=== PATIENT | male | born 1960 | race Caucasian/White ===

== ENCOUNTER 2018-01-09 23:12 | Inpatient (IN) | payer BC ==
[~2018-01-09] VITALS: Ht 182.9 cm; Wt 134.4 kg
[~2018-01-09 23:12] MED LIST changes: -XARELTO20 MG PO
[2018-01-09] MEDS ORDERED: OXYCONTIN10 MG PO (23:51)
[2018-01-09] MEDS ORDERED: XARELTO20 MG PO (23:51)
[2018-01-10] VITALS (7 sets, daily range): BP systolic 139–172; BP diastolic 72–84
[2018-01-10 00:09] LABS: BASOPHILS # (AUTO) 0.1 (0.0-0.1); BASOPHILS % 0.8 % (0.0-1.0); EOSINOPHILS # (AUTO) 0.1 (0.0-0.4); EOSINOPHILS % 1.6 % (0.0-6.0); HEMATOCRIT 44.9 % (38.2-49.6); HEMOGLOBIN 15.2 g/dL (14.0-18.0); LYMPHOCYTES # (AUTO) 2.1 (1.0-3.2); LYMPHOCYTES % 23.6 % (18.0-39.1); MEAN CORPUSCULAR HEMOGLOBIN 28.6 pg (28-32); MEAN CORPUSCULAR HGB CONC 33.9 g/dL (31-35); MEAN CORPUSCULAR VOLUME 84.4 fL (81-99); MONOCYTES # (AUTO) 0.8 (0.2-0.8); MONOCYTES % 8.5 % (4.4-11.3); NEUTROPHILS # (AUTO) 5.4 (2.1-6.9); NEUTROPHILS % 60.9 % (38.7-80.0); PLATELET COUNT 340 x10e3/uL (140-360); RED BLOOD COUNT 5.32 x10e6/uL (4.3-5.7); RED CELL DISTRIBUTION WIDTH 14.2 % (11.7-14.4)
[2018-01-10] MEDS ORDERED: VANCOMYCIN 1GM/NS 250 ML 250 ML IV ONE (00:15)
[2018-01-10 00:17] LABS: INR 1.23; PROTHROMBIN TIME 14.6 seconds (11.9-14.5)
[2018-01-10 00:18] LABS: PARTIAL THROMBOPLASTIN TIME 36.3 seconds (23.8-35.5)
[2018-01-10 00:25] LABS: ALANINE AMINOTRANSFERASE 42 IU/L (0-55); ALBUMIN 2.8 g/dL (3.5-5.0); ALBUMIN/GLOBULIN RATIO 0.6 (0.8-2.0); ALKALINE PHOSPHATASE 169 IU/L (40-150); ANION GAP 18.2 mmol/L (8-16); BLOOD UREA NITROGEN 19 mg/dL (7-26); BUN/CREATININE RATIO 14 (6-25); CALCIUM 9.3 mg/dL (8.4-10.2); CARBON DIOXIDE 22 mmol/L (22-29); CHLORIDE 99 mmol/L (98-107); CREATINE KINASE 116 IU/L (30-200); CREATININE, SERUM 1.38 mg/dL (0.72-1.25); EST GLOMERULAR FILTRATION RATE 53 ML/MIN (60-); MAGNESIUM 2.1 MG/DL (1.3-2.1); POTASSIUM 4.2 mmol/L (3.5-5.1); SODIUM 135 mmol/L (136-145)
[2018-01-10 00:26] LABS: GLUCOSE 668 mg/dL (74-118)
[2018-01-10] MEDS: PIPER-TAZ 3.375 GM 50 ML IV SCH ×5 (00:32→23:39)
[2018-01-10] MEDS ORDERED: SODIUM CHLORIDE 0.9% 1000ML 1,000 ML IV STA (00:34)
[2018-01-10] MEDS ORDERED: INSULIN REGULAR, HUMAN 100 UNIT/1 ML 3ML VIAL IV STA (00:34)
--- NOTE | 2018-01-10 01:11 | Diagnostic Imaging Report ---
EXAM: LOWER LEG LEFT, AP and lateral INDICATION: Lower extremity cellulitis, wound posterior leg mid diaphysis COMPARISON: None FINDINGS: BONES: Prior transmetatarsal surgical amputation. Multiple subcentimeter lucent lesions seen in the mid to distal tibia JOINTS: No malalignment. Degenerative changes of the ankle and hindfoot. SOFT TISSUES: Subcutaneous emphysema in the proximal lateral calf. Multiple surgical clips medial upper calf. Phleboliths and soft tissue swelling lower calf/ankle. IMPRESSION: Multiple subcentimeter lucent lesions in the mid to distal tibial diaphysis could represent osteomyelitis or multiple myeloma. Superficial subcutaneous emphysema at the proximal lateral calf consistent with soft tissue infection. Signed by: Dr. Jennifer Childress M.D. on 01/10/2018 1:08 AM
--- NOTE | 2018-01-10 01:12 | Diagnostic Imaging Report ---
EXAM: CHEST 2 VIEWS, PA and lateral INDICATION: Lower extremity cellulitis COMPARISON: None FINDINGS: LINES/TUBES: None LUNGS: No consolidations or edema. PLEURA: No effusions or pneumothorax. HEART AND MEDIASTINUM: Normal size and contour. BONES AND SOFT TISSUES: No acute findings. Degenerative changes of the thoracic spine. IMPRESSION: No acute thoracic abnormality. Signed by: Dr. Jennifer Childress M.D. on 01/10/2018 1:09 AM
[2018-01-10] MEDS ORDERED: SODIUM CHLORIDE 0.9% 1000ML 1,000 ML IV SCH (01:23)
[2018-01-10] MEDS ORDERED: DEXTROSE 50% SYRINGE 50 ML IV PRN (01:30)
[2018-01-10 02:37] LABS: CLARITY,URINE CLEAR (CLEAR); COLOR,URINE YELLOW (YELLOW); LEUKOCYTE ESTERASE ,URINE NEGATIVE (NEGATIVE)
[2018-01-10 02:38] LABS: BILIRUBIN,URINE NEGATIVE (NEGATIVE); KETONES,URINE 1+ (NEGATIVE); NITRITE,URINE NEGATIVE (NEGATIVE); PROTEIN,URINE DIPSTICK NEGATIVE (NEGATIVE); URINE UROBILINOGEN 0.2 mg/dL (0.2 - 1)
[2018-01-10 02:40] LABS: EPITHELIAL CELLS,URINE FEW /LPF; RBC,URINE 0-5 /HPF (0-5); WBC,URINE (MAN) 0-5 /HPF (0-5)
[2018-01-10] MEDS: HYDROMORPHONE 1MG/1ML INJ IV PRN ×4 (03:15→21:25)
[2018-01-10] MEDS: ONDANSETRON HCL INJ 2 MG/ML VIAL IV PRN ×3 (03:15→21:25)
[2018-01-10] MEDS: RIVAROXABAN 20 MG TABLET PO SCH (08:21)
[2018-01-10] MEDS: INSULIN REGULAR, HUMAN 100 UNIT/1 ML 3ML VIAL SQ SCH ×4 (08:21→21:00)
[2018-01-10] MEDS: VANCOMYCIN 1GM/NS 250 ML 250 ML IV SCH (10:44)
--- NOTE | 2018-01-10 16:59 | Diagnostic Imaging Report ---
BONE SURVEY COMP -19 views HISTORY: Multiple myeloma. COMPARISON: None available. FINDINGS: Bones: No acute displaced fracture. Remote fracture of the right ulnar styloid. No significant lytic lesions noted. Joints: Degenerative changes of the cervical and thoracolumbar spine. DJD of AC joint bilaterally. Right foot demonstrate moderate hallux valgus deformity. Soft tissues: IVC filter. Chest: Bibasilar subsegmental atelectasis. IMPRESSION: 1. No evidence of lytic lesions. 2. Moderate right hallux valgus deformity. Signed by: Dr. Evelia Ferrell M.D. on 01/10/2018 4:55 PM
[2018-01-10] MEDS: OXYCODONE HCL 10 MG TAB CR PO PRN (19:16)
[2018-01-11] VITALS (9 sets, daily range): BP systolic 116–173; BP diastolic 64–92
[2018-01-11] MEDS: HYDROMORPHONE 1MG/1ML INJ IV PRN ×4 (00:15→22:20)
[2018-01-11] MEDS: ONDANSETRON HCL INJ 2 MG/ML VIAL IV PRN ×3 (00:15→22:20)
--- NOTE | 2018-01-11 02:51 | Consultation ---
DATE OF CONSULTATION: January 10, 2018 REASON FOR CONSULTATION: Left TMA site infection. Thank you so much for asking me to see this patient. This is a very pleasant 57-year-old white male with a history of obesity, history of smoking, history of left TMA amputation 7 years ago, history of some DVT and some type of venous surgery on that same leg according to him. The patient comes in with a 1-week history of dehiscence of the wound. No trauma. Some drainage. No fever. No chills. The stump was erythematous and started to go up to his leg. Patient apparently took some oral antibiotic before he came here without any improvement. He came to the hospital where he is being admitted. Patient is currently laying in bed comfortably. He has no other complaints at the present time. He is up to date on vaccinations he said. REVIEW OF SYSTEMS HEENT: There is no headache, visual changes or hearing changes. GI: There is no nausea. No vomiting. No diarrhea. CARDIAC: There is no arrhythmia. NEURO: No seizure activity. SKIN: There is no rash. All other symptoms are within normal limits. MEDICATIONS: His medication list, he is currently on Xarelto, insulin, Zofran, and Zosyn. ALLERGIES: NKA. SOCIAL HISTORY: He smoked 1 pack a day. LABS: White count 8.93, hemoglobin 15.2, hematocrit 44, and his platelets are 340,000. Sodium 130, potassium 4.2, glucose 668, creatinine 1.38. He had an x-ray of the foot that showed multiple lucency in the middistal tibia. Could represent osteomyelitis or multiple myeloma. PHYSICAL EXAMINATION GENERAL: He is currently alert and oriented. Does not seem to be in acute distress. VITALS: Stable. Currently afebrile. HEENT: Does not appear icteric. NECK: Supple. No JVD. No thyromegaly. CHEST: Clear bilaterally. HEART: S1 and S2. No S3, S4 or murmur. ABDOMEN: Soft. EXTREMITIES: At the stump, there is erythema and edema. IMPRESSION 1. Cellulitis of the stump: Concerned about underlying osteomyelitis. Obtain MRI. 2. Chronic kidney disease. 3. Diabetes mellitus, not controlled. 4. Peripheral vascular disease: I would recommend vascular workup. Will add vancomycin 1 g q.24 h. Bone survey to rule out multiple myeloma. Serum protein electrophoresis. Urine protein electrophoresis. Will follow. Job#: [id number]
[2018-01-11 04:39] LABS: BASOPHILS # (AUTO) 0.1 (0.0-0.1); BASOPHILS % 0.6 % (0.0-1.0); EOSINOPHILS # (AUTO) 0.1 (0.0-0.4); EOSINOPHILS % 1.2 % (0.0-6.0); HEMATOCRIT 42.9 % (38.2-49.6); HEMOGLOBIN 14.1 g/dL (14.0-18.0); LYMPHOCYTES # (AUTO) 2.6 (1.0-3.2); LYMPHOCYTES % 24.6 % (18.0-39.1); MEAN CORPUSCULAR HEMOGLOBIN 28.4 pg (28-32); MEAN CORPUSCULAR HGB CONC 32.9 g/dL (31-35); MEAN CORPUSCULAR VOLUME 86.5 fL (81-99); MONOCYTES # (AUTO) 0.8 (0.2-0.8); MONOCYTES % 7.8 % (4.4-11.3); NEUTROPHILS # (AUTO) 6.6 (2.1-6.9); NEUTROPHILS % 62.8 % (38.7-80.0); PLATELET COUNT 294 x10e3/uL (140-360); RED BLOOD COUNT 4.96 x10e6/uL (4.3-5.7); RED CELL DISTRIBUTION WIDTH 14.3 % (11.7-14.4)
[2018-01-11 04:57] LABS: ALANINE AMINOTRANSFERASE 48 IU/L (0-55); ALBUMIN 2.5 g/dL (3.5-5.0); ALBUMIN/GLOBULIN RATIO 0.6 (0.8-2.0); ALKALINE PHOSPHATASE 104 IU/L (40-150); ANION GAP 15.9 mmol/L (8-16); BLOOD UREA NITROGEN 16 mg/dL (7-26); BUN/CREATININE RATIO 17 (6-25); CALCIUM 8.8 mg/dL (8.4-10.2); CARBON DIOXIDE 22 mmol/L (22-29); CHLORIDE 106 mmol/L (98-107); CREATININE, SERUM 0.94 mg/dL (0.72-1.25); EST GLOMERULAR FILTRATION RATE > 60 ML/MIN (60-); GLUCOSE 271 mg/dL (74-118); POTASSIUM 3.9 mmol/L (3.5-5.1); SODIUM 140 mmol/L (136-145)
[2018-01-11] MEDS: PIPER-TAZ 3.375 GM 50 ML IV SCH ×3 (06:15→17:23)
[2018-01-11] MEDS: RIVAROXABAN 20 MG TABLET PO SCH (07:56)
[2018-01-11] MEDS: INSULIN REGULAR, HUMAN 100 UNIT/1 ML 3ML VIAL SQ SCH ×4 (07:59→21:00)
[2018-01-11] MEDS: VANCOMYCIN 1GM/NS 250 ML 250 ML IV SCH (09:03)
[2018-01-11] MEDS: OXYCODONE HCL 10 MG TAB CR PO PRN (10:45)
[2018-01-12] VITALS (7 sets, daily range): BP systolic 131–151; BP diastolic 64–88
[2018-01-12] MEDS: PIPER-TAZ 3.375 GM 50 ML IV SCH ×5 (00:07→23:02)
[2018-01-12] MEDS: ONDANSETRON HCL INJ 2 MG/ML VIAL IV PRN ×3 (02:20→22:14)
[2018-01-12] MEDS: HYDROMORPHONE 1MG/1ML INJ IV PRN ×5 (02:20→22:14)
[2018-01-12] MEDS: INSULIN REGULAR, HUMAN 100 UNIT/1 ML 3ML VIAL SQ SCH ×4 (07:30→21:02)
[2018-01-12] MEDS: RIVAROXABAN 20 MG TABLET PO SCH (08:13)
[2018-01-12] MEDS: VANCOMYCIN 1GM/NS 250 ML 250 ML IV SCH (10:00)
[2018-01-12] MEDS ORDERED: GADOBENATE DIMEGLUMINE 1 ML IV ONE (11:17)
--- NOTE | 2018-01-12 11:31 | Diagnostic Imaging Report ---
PROCEDURE: A single AP view of the chest. COMPARISON: 01/10/18 INDICATIONS: PICC PLACEMENT FINDINGS: Lines/tubes: Right PICC in place with tip overlying the inferior SVC. Lungs: The lungs are well inflated. Mild central peribronchovascular thickening/cuffing . No definite focal consolation. Pleura: There is no pleural effusion or pneumothorax. Heart and mediastinum: The heart and the mediastinum are unremarkable. Bones: No acute bony abnormality. IMPRESSION: Right PICC in place with tip overlying the inferior SVC. No visible pneumothorax. Mild central peribronchovascular thickening/cuffing . Dictated by: Bolivar Gonsalves M.D. on 01/12/2018 at 11:37 Electronically approved by: Bolivar Gonsalves M.D. on 01/12/2018 at 11:37
--- NOTE | 2018-01-12 13:18 | Diagnostic Imaging Report ---
TECHNIQUE: Magnetic resonance imaging of the LEFT ANKLE was performed WITH and WITHOUT injected contrast. Post-contrast images were obtained after intravenous injection of 20 cc of MultiHance. HISTORY: Cellulitis, swelling COMPARISON: Left tibia and fibula January 10, 2018 and left foot radiographs January 08, 2016 FINDINGS: BONES: Serpentine intramedullary signal within the distal tibial metadiaphysis without adjacent edema. No acute fracture or osteonecrosis. Status post partial amputation of the foot at the level of the tarsometatarsal joints. JOINTS: Multifocal degenerative changes, most notably moderate of the tibiotalar joint. SOFT TISSUES: Mild nonspecific superficial soft tissue edema. No fluid collection. IMPRESSION: 1. No osteomyelitis. 2. No soft tissue abscess. 3. 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 Signed by: Dr. Des Baca D.O., M.M.M. on 01/12/2018 1:14 PM
[2018-01-12] MEDS: OXYCODONE HCL 10 MG TAB CR PO PRN (14:35)
[2018-01-13] VITALS: BP 138/73
[2018-01-13] MEDS: ONDANSETRON HCL INJ 2 MG/ML VIAL IV PRN ×2 (03:30→22:08)
[2018-01-13] MEDS: HYDROMORPHONE 1MG/1ML INJ IV PRN ×6 (03:30→22:08)
[2018-01-13 04:00] VITALS: BP 138/66
[2018-01-13] MEDS: PIPER-TAZ 3.375 GM 50 ML IV SCH ×3 (05:14→18:41)
--- NOTE | 2018-01-13 06:58 | Consultation ---
DATE OF CONSULTATION: January 13, 2018 The patient is a 57-year-old male with a history of diabetes, who presents with nonhealing ulcers on his left leg. He has purulent drainage from the left leg. Also, has a nonhealing wound to the left transmetatarsal amputation stump, which has not healed for many years. Patient has had purulent drainage from ulcers on the posterior aspect of his left leg. PAST MEDICAL HISTORY: As stated above. ALLERGIES: HE HAS NO ALLERGIES. PREVIOUS SURGERIES: Left transmetatarsal amputation and history of hypertension. FAMILY HISTORY: Noncontributory. SOCIAL HISTORY: The patient smokes cigarettes 1 pack per day. He does not drink alcohol. REVIEW OF SYSTEMS: He has not had any fever. PHYSICAL EXAMINATION GENERAL: The patient is awake, alert and in no distress. VITALS: Normal. HEENT: Reveals no scleral icterus. NECK: Has no masses. LUNGS: Equal breath sounds are clear bilaterally. CARDIAC: Regular rate and rhythm. No murmur. ABDOMEN: Soft without tenderness. EXTREMITIES: There is a left transmetatarsal amputation with an open area, which is clean. There is a ulcer on the posterior aspect of the leg with purulent drainage. ASSESSMENT: A 57-year-old male with nonhealing ulcer on his left transmetatarsal amputation, as well as abscess on the posterior aspect of his leg. There is also changes of venous stasis. Patient will need incision and drainage of the abscess on the leg with some debridement. This was explained to the patient, and have scheduled the patient for surgery tomorrow. Thank you for asking me to see Mr. Madrid. Job#: [id number]
[2018-01-13 07:30] VITALS: BP 130/74
[2018-01-13] MEDS: INSULIN REGULAR, HUMAN 100 UNIT/1 ML 3ML VIAL SQ SCH ×4 (08:01→21:35)
[2018-01-13] MEDS: VANCOMYCIN 1GM/NS 250 ML 250 ML IV SCH (10:24)
[2018-01-13 12:00] VITALS: BP 139/67
[2018-01-13 16:00] VITALS: BP 140/86
[2018-01-13 20:00] VITALS: BP 120/65
[2018-01-14] VITALS (7 sets, daily range): BP systolic 106–138; BP diastolic 52–85
[2018-01-14] MEDS: PIPER-TAZ 3.375 GM 50 ML IV SCH ×4 (00:20→17:14)
[2018-01-14] MEDS: HYDROMORPHONE 1MG/1ML INJ IV PRN ×7 (02:00→22:41)
[2018-01-14] MEDS: ONDANSETRON HCL INJ 2 MG/ML VIAL IV PRN (06:22)
[2018-01-14] MEDS: INSULIN REGULAR, HUMAN 100 UNIT/1 ML 3ML VIAL SQ SCH ×4 (07:30→20:37)
[2018-01-14] MEDS: VANCOMYCIN 1GM/NS 250 ML 250 ML IV SCH (10:00)
[2018-01-14] MEDS ORDERED: DEXAMETHASONE SOD PHOS INJ 4 MG/ML VIAL ONE (13:25)
[2018-01-14] MEDS ORDERED: PHENYLEPHRINE HCL 1% 10 MG/ML VIAL ONE (13:25)
[2018-01-14] MEDS ORDERED: ONDANSETRON HCL INJ 2 MG/ML VIAL ONE (13:25)
[2018-01-14] MEDS ORDERED: LIDOCAINE HCL 2% LOCAL INJ 5 ML SDV VIAL INJ ONE (13:25)
[2018-01-14] MEDS ORDERED: SEVOFLURANE INHAL SOLN 250 ML PEN BTL ONE (13:25)
[2018-01-14] MEDS ORDERED: PROPOFOL IV EMULSION 10 MG/ML 20 ML VIAL ONE (13:25)
--- NOTE | 2018-01-14 13:54 | Operative Report ---
DATE OF PROCEDURE: January 14, 2018 PREOPERATIVE DIAGNOSIS: Abscess, left leg with necrotic ulcer, left leg. POSTOPERATIVE DIAGNOSIS: Abscess, left leg with necrotic ulcer, left leg. PROCEDURES PERFORMED 1. Incision and drainage of abscess, left leg. 2. Excisional debridement, left leg ulcer. DISABILITY ADVOCATE: None. ANESTHESIA: General. INDICATIONS AND FINDINGS: Patient is a 57-year-old male who has history of venous stasis disease, presently has an ulcer on the left leg with purulent drainage. At surgery, there was an abscess cavity adjacent to the ulcer, which was drained. Approximately 10 mL of purulent fluid was drained. Sample was taken for culture and sensitivity. There was necrotic subcutaneous tissue and a large amount of undermining around the area of the ulcer, which all was excised back to healthy tissue. TECHNIQUE: After adequate general anesthesia with the patient in right side down position, the left posterolateral leg was prepped and draped in sterile fashion with Betadine solution. There was a small ulcer with purulent drainage. An incision made through this area and abscess cavity entered. About 10 mL of purulent fluid was drained. Sample taken for culture and sensitivity. There was another ulcer more posterior to this one, which was clean with no communication with the abscess cavity or this ulcer. There was necrotic subcutaneous tissue, which was excised with the overlying skin back to healthy bleeding tissue. Excisional debridement was approximately 25 sq. cm. Skin and subcutaneous tissue were debrided. Hemostasis was achieved with electrocautery. The wound was irrigated with saline. Wounds were then dressed open with saline moistened gauze and a sterile dressing applied. Patient tolerated the procedure well. Estimated blood loss was 25 mL. There were no complications. All counts were correct. Patient was taken to the recovery room in satisfactory condition. Job#: [id number] PSO cc:DEBORAH CHANG MD
[2018-01-14] MEDS ORDERED: FENTANYL CITRATE/PF 100MCG/2 ML INJ ONE (14:13)
[2018-01-14] MEDS ORDERED: MIDAZOLAM HCL 2 MG/2 ML VIAL ONE (14:13)
[2018-01-15] VITALS (8 sets, daily range): BP systolic 119–141; BP diastolic 58–75
[2018-01-15] MEDS: PIPER-TAZ 3.375 GM 50 ML IV SCH ×6 (00:14→22:55)
[2018-01-15] MEDS: HYDROMORPHONE 1MG/1ML INJ IV PRN ×7 (02:52→22:54)
[2018-01-15] MEDS: INSULIN REGULAR, HUMAN 100 UNIT/1 ML 3ML VIAL SQ SCH ×4 (07:30→21:00)
[2018-01-15] MEDS: VANCOMYCIN HCL 1.5 GM in SODIUM CHLORIDE 0.9% 250ML 300 ML IV SCH (12:58)
[2018-01-16] VITALS (7 sets, daily range): BP systolic 109–151; BP diastolic 58–85
[2018-01-16] MEDS: VANCOMYCIN HCL 1.5 GM in SODIUM CHLORIDE 0.9% 250ML 300 ML IV SCH ×2 (01:09→13:00)
[2018-01-16] MEDS: HYDROMORPHONE 1MG/1ML INJ IV PRN ×6 (02:10→20:10)
[2018-01-16] MEDS: PIPER-TAZ 3.375 GM 50 ML IV SCH (06:14)
[2018-01-16] MEDS: INSULIN REGULAR, HUMAN 100 UNIT/1 ML 3ML VIAL SQ SCH ×3 (08:30→16:51)
[2018-01-16] MEDS ORDERED: CEFEPIME HCL 1 GM VIAL IV SCH (12:00)
[2018-01-16] MEDS ORDERED: ALTEPLASE RECOMBINANT 2 MG/2 ML VIAL IV ONE (15:15)
[2018-01-16] MEDS: ONDANSETRON HCL INJ 2 MG/ML VIAL IV PRN (20:10)
== END 2018-01-16 20:35 | disposition home health service (06) | DRG 464 ==
LOC: ER 23:12 → ERHOLD 01-10 01:23 → MED/SURG2 01-10 02:37
PROVIDERS: ADMIT Internal Medicine; ATTEND Internal Medicine
PROC: 02HV33Z Insertion of Infusion Device into Superior Vena Cava, Percutaneous Approach (ICD-10-PCS; 2018-01-12)
PROC: 0JBP0ZZ Excision of Left Lower Leg Subcutaneous Tissue and Fascia, Open Approach (ICD-10-PCS; 2018-01-14)
PROC: 0Y9J0ZZ Drainage of Left Lower Leg, Open Approach (ICD-10-PCS; principal; 2018-01-14 12:00)
DX: T87.44 Infection of amputation stump, left lower extremity (principal); L03.116 Cellulitis of left lower limb; Z68.41 Body mass index [BMI] 40.0-44.9, adult; L97.822 Non-pressure chronic ulcer of other part of left lower leg with fat layer exposed; E11.51 Type 2 diabetes mellitus with diabetic peripheral angiopathy without gangrene; E11.622 Type 2 diabetes mellitus with other skin ulcer; E11.22 Type 2 diabetes mellitus with diabetic chronic kidney disease; E11.65 Type 2 diabetes mellitus with hyperglycemia; I12.9 Hypertensive chronic kidney disease with stage 1 through stage 4 chronic kidney disease, or unspecified chronic kidney disease; N18.3 Chronic kidney disease, stage 3 (moderate); I73.9 Peripheral vascular disease, unspecified; F17.210 Nicotine dependence, cigarettes, uncomplicated; E66.9 Obesity, unspecified; I87.2 Venous insufficiency (chronic) (peripheral); T87.89 Other complications of amputation stump; T87.81 Dehiscence of amputation stump; Z86.718 Personal history of other venous thrombosis and embolism; Z79.01 Long term (current) use of anticoagulants; Z79.4 Long term (current) use of insulin
CPT/HCPCS: 36415; 71045; 71046; 77075; 80053; 80202; 81001; 82550; 82553; 82948; 83605; 83735; 83880; 84165; 84484; 85025; 85610; 85730; 87040; 87071; 87086; 87186; 87205; 88304; 99284; J0692; J1100; J1170; J2001; J2250; J2370; J2405; J2543; J2997; J3370; J7030; J7050

== ENCOUNTER → 2018-01-09 | Outpatient (CLI) | payer BC ==
[~2018-01-09] MED LIST: CIPROFLOXACIN500 M1 PO; CLINDAMYCIN HC150 MG PO; COUMADIN5 MG PO; HYDROCODON-ACE1 EAC9 PO; NORCO 7.5-3251 EACH PO; OXYCONTIN10 MG PO; XARELTO20 MG PO
== END ==
LOC: WCC 13:33
PROVIDERS: ATTEND Internal Medicine Infectious Disease
DX: E11.51 Type 2 diabetes mellitus with diabetic peripheral angiopathy without gangrene (principal); E11.65 Type 2 diabetes mellitus with hyperglycemia; L03.116 Cellulitis of left lower limb; S81.802A Unspecified open wound, left lower leg, initial encounter; S91.309A Unspecified open wound, unspecified foot, initial encounter; L97.321 Non-pressure chronic ulcer of left ankle limited to breakdown of skin; R60.0 Localized edema; I87.2 Venous insufficiency (chronic) (peripheral); I87.332 Chronic venous hypertension (idiopathic) with ulcer and inflammation of left lower extremity; K46.9 Unspecified abdominal hernia without obstruction or gangrene; W20.8XXA Other cause of strike by thrown, projected or falling object, initial encounter
CPT/HCPCS: 87071; 87075; 87186; 87205

== ENCOUNTER → 2018-01-23 | Outpatient (CLI) | payer BC ==
[~2018-01-23] MED LIST changes: +XARELTO20 MG PO
== END ==
LOC: WCC 15:25
PROVIDERS: ATTEND Internal Medicine Infectious Disease
DX: E11.65 Type 2 diabetes mellitus with hyperglycemia (principal); E11.51 Type 2 diabetes mellitus with diabetic peripheral angiopathy without gangrene; L03.116 Cellulitis of left lower limb; L97.321 Non-pressure chronic ulcer of left ankle limited to breakdown of skin; S81.802A Unspecified open wound, left lower leg, initial encounter; S91.309A Unspecified open wound, unspecified foot, initial encounter; I87.332 Chronic venous hypertension (idiopathic) with ulcer and inflammation of left lower extremity; I87.2 Venous insufficiency (chronic) (peripheral); R60.0 Localized edema; K46.9 Unspecified abdominal hernia without obstruction or gangrene; W20.8XXA Other cause of strike by thrown, projected or falling object, initial encounter

== ENCOUNTER → 2018-01-27 | Outpatient (CLI) | payer BC | LOC: WCC 13:02 | PROVIDERS: ATTEND Internal Medicine Infectious Disease | DX: E11.51 Type 2 diabetes mellitus with diabetic peripheral angiopathy without gangrene (principal); E11.65 Type 2 diabetes mellitus with hyperglycemia; I87.332 Chronic venous hypertension (idiopathic) with ulcer and inflammation of left lower extremity; L97.321 Non-pressure chronic ulcer of left ankle limited to breakdown of skin; L03.116 Cellulitis of left lower limb; S81.802A Unspecified open wound, left lower leg, initial encounter; I87.2 Venous insufficiency (chronic) (peripheral); R60.0 Localized edema; W20.8XXA Other cause of strike by thrown, projected or falling object, initial encounter; K46.9 Unspecified abdominal hernia without obstruction or gangrene ==

== ENCOUNTER → 2018-01-30 | Outpatient (CLI) | payer BC | LOC: WCC 11:06 | PROVIDERS: ATTEND Internal Medicine Infectious Disease | DX: E11.622 Type 2 diabetes mellitus with other skin ulcer (principal); E11.51 Type 2 diabetes mellitus with diabetic peripheral angiopathy without gangrene; E11.65 Type 2 diabetes mellitus with hyperglycemia; L97.321 Non-pressure chronic ulcer of left ankle limited to breakdown of skin; L98.499 Non-pressure chronic ulcer of skin of other sites with unspecified severity; I87.332 Chronic venous hypertension (idiopathic) with ulcer and inflammation of left lower extremity; S81.802A Unspecified open wound, left lower leg, initial encounter; L03.116 Cellulitis of left lower limb; I87.2 Venous insufficiency (chronic) (peripheral); R60.0 Localized edema; K46.9 Unspecified abdominal hernia without obstruction or gangrene; W20.8XXA Other cause of strike by thrown, projected or falling object, initial encounter ==

== ENCOUNTER → 2018-02-03 | Outpatient (CLI) | payer BC | LOC: WCC 14:46 | PROVIDERS: ATTEND Internal Medicine Infectious Disease | DX: E11.622 Type 2 diabetes mellitus with other skin ulcer (principal); E11.65 Type 2 diabetes mellitus with hyperglycemia; E11.51 Type 2 diabetes mellitus with diabetic peripheral angiopathy without gangrene; L97.321 Non-pressure chronic ulcer of left ankle limited to breakdown of skin; L98.499 Non-pressure chronic ulcer of skin of other sites with unspecified severity; L03.116 Cellulitis of left lower limb; S81.802A Unspecified open wound, left lower leg, initial encounter; I87.332 Chronic venous hypertension (idiopathic) with ulcer and inflammation of left lower extremity; I87.2 Venous insufficiency (chronic) (peripheral); R60.0 Localized edema; W20.8XXA Other cause of strike by thrown, projected or falling object, initial encounter; K46.9 Unspecified abdominal hernia without obstruction or gangrene ==

== ENCOUNTER → 2018-02-13 | Outpatient (CLI) | payer BC | LOC: WCC 11:29 | PROVIDERS: ATTEND Internal Medicine Infectious Disease | DX: E11.51 Type 2 diabetes mellitus with diabetic peripheral angiopathy without gangrene (principal); E11.65 Type 2 diabetes mellitus with hyperglycemia; I87.332 Chronic venous hypertension (idiopathic) with ulcer and inflammation of left lower extremity; L97.321 Non-pressure chronic ulcer of left ankle limited to breakdown of skin; S81.802A Unspecified open wound, left lower leg, initial encounter; R60.0 Localized edema; I87.2 Venous insufficiency (chronic) (peripheral); B96.89 Other specified bacterial agents as the cause of diseases classified elsewhere; K46.9 Unspecified abdominal hernia without obstruction or gangrene; W20.8XXA Other cause of strike by thrown, projected or falling object, initial encounter ==

== ENCOUNTER → 2018-02-17 | Outpatient (CLI) | payer BC | LOC: WCC 13:59 | PROVIDERS: ATTEND Internal Medicine Infectious Disease | DX: E11.51 Type 2 diabetes mellitus with diabetic peripheral angiopathy without gangrene (principal); E11.65 Type 2 diabetes mellitus with hyperglycemia; B96.89 Other specified bacterial agents as the cause of diseases classified elsewhere; R60.0 Localized edema; S81.802A Unspecified open wound, left lower leg, initial encounter; I87.332 Chronic venous hypertension (idiopathic) with ulcer and inflammation of left lower extremity; L97.321 Non-pressure chronic ulcer of left ankle limited to breakdown of skin; W20.8XXA Other cause of strike by thrown, projected or falling object, initial encounter; K46.9 Unspecified abdominal hernia without obstruction or gangrene; I87.2 Venous insufficiency (chronic) (peripheral) ==

== ENCOUNTER → 2018-02-20 | Outpatient (CLI) | payer BC | LOC: WCC 12:08 | PROVIDERS: ATTEND Internal Medicine Infectious Disease | DX: E11.51 Type 2 diabetes mellitus with diabetic peripheral angiopathy without gangrene (principal); E11.65 Type 2 diabetes mellitus with hyperglycemia; I87.332 Chronic venous hypertension (idiopathic) with ulcer and inflammation of left lower extremity; L97.321 Non-pressure chronic ulcer of left ankle limited to breakdown of skin; S81.802A Unspecified open wound, left lower leg, initial encounter; I87.2 Venous insufficiency (chronic) (peripheral); R60.0 Localized edema; B96.89 Other specified bacterial agents as the cause of diseases classified elsewhere; K46.9 Unspecified abdominal hernia without obstruction or gangrene; W20.8XXA Other cause of strike by thrown, projected or falling object, initial encounter ==

== ENCOUNTER → 2018-02-24 | Outpatient (CLI) | payer BC | LOC: WCC 13:48 | PROVIDERS: ATTEND Internal Medicine Infectious Disease | DX: E11.51 Type 2 diabetes mellitus with diabetic peripheral angiopathy without gangrene (principal); E11.65 Type 2 diabetes mellitus with hyperglycemia; I87.332 Chronic venous hypertension (idiopathic) with ulcer and inflammation of left lower extremity; L97.321 Non-pressure chronic ulcer of left ankle limited to breakdown of skin; S81.802A Unspecified open wound, left lower leg, initial encounter; R60.0 Localized edema; W20.8XXA Other cause of strike by thrown, projected or falling object, initial encounter; K46.9 Unspecified abdominal hernia without obstruction or gangrene; I87.2 Venous insufficiency (chronic) (peripheral) ==

== ENCOUNTER → 2018-02-27 | Outpatient (CLI) | payer BC | LOC: WCC 10:27 | PROVIDERS: ATTEND Internal Medicine Infectious Disease | DX: E11.51 Type 2 diabetes mellitus with diabetic peripheral angiopathy without gangrene (principal); E11.65 Type 2 diabetes mellitus with hyperglycemia; I87.332 Chronic venous hypertension (idiopathic) with ulcer and inflammation of left lower extremity; L97.321 Non-pressure chronic ulcer of left ankle limited to breakdown of skin; S81.802A Unspecified open wound, left lower leg, initial encounter; I87.2 Venous insufficiency (chronic) (peripheral); R60.0 Localized edema; K46.9 Unspecified abdominal hernia without obstruction or gangrene; W20.8XXA Other cause of strike by thrown, projected or falling object, initial encounter ==

== ENCOUNTER → 2018-03-03 | Outpatient (CLI) | payer BC ==
[~2018-03-03] MED LIST changes: +LIDOCAINE VISC 2% SOLN 15 ML UDC ONE
== END ==
LOC: WCC 12:34
PROVIDERS: ATTEND Internal Medicine Infectious Disease
DX: E11.51 Type 2 diabetes mellitus with diabetic peripheral angiopathy without gangrene (principal); E11.65 Type 2 diabetes mellitus with hyperglycemia; I87.332 Chronic venous hypertension (idiopathic) with ulcer and inflammation of left lower extremity; L97.321 Non-pressure chronic ulcer of left ankle limited to breakdown of skin; S81.802A Unspecified open wound, left lower leg, initial encounter; I87.2 Venous insufficiency (chronic) (peripheral); R60.0 Localized edema; W20.8XXA Other cause of strike by thrown, projected or falling object, initial encounter; K46.9 Unspecified abdominal hernia without obstruction or gangrene

== ENCOUNTER → 2018-03-06 | Outpatient (CLI) | payer BC ==
[~2018-03-06] MED LIST changes: -LIDOCAINE VISC 2% SOLN 15 ML UDC ONE
== END ==
LOC: WCC 11:12
PROVIDERS: ATTEND Internal Medicine Infectious Disease
DX: E11.51 Type 2 diabetes mellitus with diabetic peripheral angiopathy without gangrene (principal); E11.65 Type 2 diabetes mellitus with hyperglycemia; L97.321 Non-pressure chronic ulcer of left ankle limited to breakdown of skin; S81.802A Unspecified open wound, left lower leg, initial encounter; I87.332 Chronic venous hypertension (idiopathic) with ulcer and inflammation of left lower extremity; R60.0 Localized edema; I87.2 Venous insufficiency (chronic) (peripheral); K46.9 Unspecified abdominal hernia without obstruction or gangrene; W20.8XXA Other cause of strike by thrown, projected or falling object, initial encounter

== ENCOUNTER → 2018-03-10 | Outpatient (CLI) | payer BC | LOC: WCC 14:15 | PROVIDERS: ATTEND Internal Medicine Infectious Disease | DX: E11.51 Type 2 diabetes mellitus with diabetic peripheral angiopathy without gangrene (principal); E11.65 Type 2 diabetes mellitus with hyperglycemia; S81.802A Unspecified open wound, left lower leg, initial encounter; I87.332 Chronic venous hypertension (idiopathic) with ulcer and inflammation of left lower extremity; L97.321 Non-pressure chronic ulcer of left ankle limited to breakdown of skin; I87.2 Venous insufficiency (chronic) (peripheral); R60.0 Localized edema; W20.8XXA Other cause of strike by thrown, projected or falling object, initial encounter; K46.9 Unspecified abdominal hernia without obstruction or gangrene ==

== ENCOUNTER → 2018-03-13 | Outpatient (CLI) | payer BC | LOC: WCC 12:34 | PROVIDERS: ATTEND Internal Medicine Infectious Disease | DX: E11.51 Type 2 diabetes mellitus with diabetic peripheral angiopathy without gangrene (principal); E11.65 Type 2 diabetes mellitus with hyperglycemia; I87.332 Chronic venous hypertension (idiopathic) with ulcer and inflammation of left lower extremity; L97.321 Non-pressure chronic ulcer of left ankle limited to breakdown of skin; S81.802A Unspecified open wound, left lower leg, initial encounter; I87.2 Venous insufficiency (chronic) (peripheral); R60.0 Localized edema; K46.9 Unspecified abdominal hernia without obstruction or gangrene; W20.8XXA Other cause of strike by thrown, projected or falling object, initial encounter ==

== ENCOUNTER → 2018-03-17 | Outpatient (CLI) | payer BC | LOC: WCC 12:47 | PROVIDERS: ATTEND Internal Medicine Infectious Disease | DX: E11.51 Type 2 diabetes mellitus with diabetic peripheral angiopathy without gangrene (principal); E11.65 Type 2 diabetes mellitus with hyperglycemia; I87.332 Chronic venous hypertension (idiopathic) with ulcer and inflammation of left lower extremity; L97.321 Non-pressure chronic ulcer of left ankle limited to breakdown of skin; S81.802A Unspecified open wound, left lower leg, initial encounter; I87.2 Venous insufficiency (chronic) (peripheral); R60.0 Localized edema; K46.9 Unspecified abdominal hernia without obstruction or gangrene; W20.8XXA Other cause of strike by thrown, projected or falling object, initial encounter ==

== ENCOUNTER → 2018-03-20 | Outpatient (CLI) | payer BC | LOC: WCC 09:09 | PROVIDERS: ATTEND Internal Medicine Infectious Disease | DX: E11.51 Type 2 diabetes mellitus with diabetic peripheral angiopathy without gangrene (principal); E11.65 Type 2 diabetes mellitus with hyperglycemia; L97.321 Non-pressure chronic ulcer of left ankle limited to breakdown of skin; I87.332 Chronic venous hypertension (idiopathic) with ulcer and inflammation of left lower extremity; S81.802A Unspecified open wound, left lower leg, initial encounter; I87.2 Venous insufficiency (chronic) (peripheral); R60.0 Localized edema; K46.9 Unspecified abdominal hernia without obstruction or gangrene; W20.8XXA Other cause of strike by thrown, projected or falling object, initial encounter ==

== ENCOUNTER → 2018-03-24 | Outpatient (CLI) | payer BC | LOC: WCC 15:00 | PROVIDERS: ATTEND Internal Medicine Infectious Disease | DX: E11.65 Type 2 diabetes mellitus with hyperglycemia (principal); E11.51 Type 2 diabetes mellitus with diabetic peripheral angiopathy without gangrene; I87.332 Chronic venous hypertension (idiopathic) with ulcer and inflammation of left lower extremity; L97.321 Non-pressure chronic ulcer of left ankle limited to breakdown of skin; S81.802A Unspecified open wound, left lower leg, initial encounter; I87.2 Venous insufficiency (chronic) (peripheral); R60.0 Localized edema; W20.8XXA Other cause of strike by thrown, projected or falling object, initial encounter; K46.9 Unspecified abdominal hernia without obstruction or gangrene ==

== ENCOUNTER → 2018-03-27 | Outpatient (CLI) | payer BC | LOC: WCC 14:21 | PROVIDERS: ATTEND Internal Medicine Infectious Disease | DX: E11.51 Type 2 diabetes mellitus with diabetic peripheral angiopathy without gangrene (principal); E11.65 Type 2 diabetes mellitus with hyperglycemia; I87.332 Chronic venous hypertension (idiopathic) with ulcer and inflammation of left lower extremity; L97.321 Non-pressure chronic ulcer of left ankle limited to breakdown of skin; S81.802A Unspecified open wound, left lower leg, initial encounter; R60.0 Localized edema; I87.2 Venous insufficiency (chronic) (peripheral); K46.9 Unspecified abdominal hernia without obstruction or gangrene; W20.8XXA Other cause of strike by thrown, projected or falling object, initial encounter ==

== ENCOUNTER → 2018-03-31 | Outpatient (CLI) | payer BC | LOC: WCC 13:54 | PROVIDERS: ATTEND Internal Medicine Infectious Disease | DX: E11.51 Type 2 diabetes mellitus with diabetic peripheral angiopathy without gangrene (principal); E11.65 Type 2 diabetes mellitus with hyperglycemia; L97.321 Non-pressure chronic ulcer of left ankle limited to breakdown of skin; I87.332 Chronic venous hypertension (idiopathic) with ulcer and inflammation of left lower extremity; S81.802A Unspecified open wound, left lower leg, initial encounter; I87.2 Venous insufficiency (chronic) (peripheral); R60.0 Localized edema; W20.8XXA Other cause of strike by thrown, projected or falling object, initial encounter; K46.9 Unspecified abdominal hernia without obstruction or gangrene ==

== ENCOUNTER → 2018-04-03 | Outpatient (CLI) | payer BC ==
[~2018-04-03] MED LIST changes: +COLLAGENASE OINTMENT 30 GM TUBE ONE; +LIDOCAINE VISC 2% SOLN 15 ML UDC ONE; +LIDOCAINE/PRILOCAINE 2.5-2.5% KIT ONE; +MINERAL OIL/PETROLAT/GLYCERI 2OZ CRM ONE; +MINERAL OIL/PETROLAT/GLYCERI 6OZ BTL ONE
== END ==
LOC: WCC 12:02
PROVIDERS: ATTEND Internal Medicine Infectious Disease
DX: E11.51 Type 2 diabetes mellitus with diabetic peripheral angiopathy without gangrene (principal); E11.65 Type 2 diabetes mellitus with hyperglycemia; I87.332 Chronic venous hypertension (idiopathic) with ulcer and inflammation of left lower extremity; L97.321 Non-pressure chronic ulcer of left ankle limited to breakdown of skin; S81.802A Unspecified open wound, left lower leg, initial encounter; R60.0 Localized edema; I87.2 Venous insufficiency (chronic) (peripheral); K46.9 Unspecified abdominal hernia without obstruction or gangrene; W20.8XXA Other cause of strike by thrown, projected or falling object, initial encounter
CPT/HCPCS: 36415; 82948

== ENCOUNTER → 2018-04-07 | Outpatient (CLI) | payer BC ==
[~2018-04-07] MED LIST changes: -COLLAGENASE OINTMENT 30 GM TUBE ONE; -LIDOCAINE VISC 2% SOLN 15 ML UDC ONE; -LIDOCAINE/PRILOCAINE 2.5-2.5% KIT ONE; -MINERAL OIL/PETROLAT/GLYCERI 2OZ CRM ONE; -MINERAL OIL/PETROLAT/GLYCERI 6OZ BTL ONE
== END ==
LOC: WCC 12:28
PROVIDERS: ATTEND Internal Medicine Infectious Disease
DX: E11.51 Type 2 diabetes mellitus with diabetic peripheral angiopathy without gangrene (principal); E11.65 Type 2 diabetes mellitus with hyperglycemia; L97.321 Non-pressure chronic ulcer of left ankle limited to breakdown of skin; S81.802A Unspecified open wound, left lower leg, initial encounter; I87.332 Chronic venous hypertension (idiopathic) with ulcer and inflammation of left lower extremity; R60.0 Localized edema; W20.8XXA Other cause of strike by thrown, projected or falling object, initial encounter; K46.9 Unspecified abdominal hernia without obstruction or gangrene; I87.2 Venous insufficiency (chronic) (peripheral)

== ENCOUNTER → 2018-04-10 | Outpatient (CLI) | payer BC | LOC: WCC 11:49 | PROVIDERS: ATTEND Internal Medicine Infectious Disease | DX: E11.51 Type 2 diabetes mellitus with diabetic peripheral angiopathy without gangrene (principal); E11.65 Type 2 diabetes mellitus with hyperglycemia; I87.332 Chronic venous hypertension (idiopathic) with ulcer and inflammation of left lower extremity; L97.321 Non-pressure chronic ulcer of left ankle limited to breakdown of skin; S81.802A Unspecified open wound, left lower leg, initial encounter; R60.0 Localized edema; I87.2 Venous insufficiency (chronic) (peripheral); W20.8XXA Other cause of strike by thrown, projected or falling object, initial encounter; K46.9 Unspecified abdominal hernia without obstruction or gangrene ==

== ENCOUNTER → 2018-04-14 | Outpatient (CLI) | payer BC | LOC: WCC 09:00 | PROVIDERS: ATTEND Internal Medicine Infectious Disease | DX: E11.51 Type 2 diabetes mellitus with diabetic peripheral angiopathy without gangrene (principal); E11.65 Type 2 diabetes mellitus with hyperglycemia; I87.332 Chronic venous hypertension (idiopathic) with ulcer and inflammation of left lower extremity; L97.321 Non-pressure chronic ulcer of left ankle limited to breakdown of skin; S81.802A Unspecified open wound, left lower leg, initial encounter; I87.2 Venous insufficiency (chronic) (peripheral); R60.0 Localized edema; K46.9 Unspecified abdominal hernia without obstruction or gangrene; W20.8XXA Other cause of strike by thrown, projected or falling object, initial encounter ==

== ENCOUNTER → 2018-04-22 | Outpatient (CLI) | payer BC | LOC: WCC 09:34 | PROVIDERS: ATTEND Internal Medicine Infectious Disease | DX: E11.51 Type 2 diabetes mellitus with diabetic peripheral angiopathy without gangrene (principal); E11.65 Type 2 diabetes mellitus with hyperglycemia; I87.332 Chronic venous hypertension (idiopathic) with ulcer and inflammation of left lower extremity; L97.321 Non-pressure chronic ulcer of left ankle limited to breakdown of skin; S81.802A Unspecified open wound, left lower leg, initial encounter; I87.2 Venous insufficiency (chronic) (peripheral); R60.0 Localized edema; W20.8XXA Other cause of strike by thrown, projected or falling object, initial encounter; K46.9 Unspecified abdominal hernia without obstruction or gangrene ==

== ENCOUNTER → 2018-04-28 | Outpatient (CLI) | payer BC | LOC: WCC 12:12 | PROVIDERS: ATTEND Internal Medicine Infectious Disease | DX: E11.51 Type 2 diabetes mellitus with diabetic peripheral angiopathy without gangrene (principal); E11.65 Type 2 diabetes mellitus with hyperglycemia; L97.321 Non-pressure chronic ulcer of left ankle limited to breakdown of skin; I87.332 Chronic venous hypertension (idiopathic) with ulcer and inflammation of left lower extremity; S81.802A Unspecified open wound, left lower leg, initial encounter; I87.2 Venous insufficiency (chronic) (peripheral); R60.0 Localized edema; W20.8XXA Other cause of strike by thrown, projected or falling object, initial encounter; K46.9 Unspecified abdominal hernia without obstruction or gangrene ==

== ENCOUNTER → 2018-05-01 | Outpatient (CLI) | payer BC | LOC: WCC 11:27 | PROVIDERS: ATTEND Internal Medicine Infectious Disease | DX: E11.51 Type 2 diabetes mellitus with diabetic peripheral angiopathy without gangrene (principal); E11.65 Type 2 diabetes mellitus with hyperglycemia; I87.332 Chronic venous hypertension (idiopathic) with ulcer and inflammation of left lower extremity; L97.321 Non-pressure chronic ulcer of left ankle limited to breakdown of skin; S81.802A Unspecified open wound, left lower leg, initial encounter; R60.0 Localized edema; I87.2 Venous insufficiency (chronic) (peripheral); K46.9 Unspecified abdominal hernia without obstruction or gangrene; W20.8XXA Other cause of strike by thrown, projected or falling object, initial encounter ==

== ENCOUNTER → 2018-05-05 | Outpatient (CLI) | payer BC ==
[~2018-05-05] MED LIST changes: +COLLAGENASE OINTMENT 30 GM TUBE ONE; +LIDOCAINE VISC 2% SOLN 15 ML UDC ONE; +MINERAL OIL/PETROLAT/GLYCERI 2OZ CRM ONE; +MINERAL OIL/PETROLAT/GLYCERI 6OZ BTL ONE
== END ==
LOC: WCC 12:45
PROVIDERS: ATTEND Internal Medicine Infectious Disease
DX: E11.51 Type 2 diabetes mellitus with diabetic peripheral angiopathy without gangrene (principal); E11.65 Type 2 diabetes mellitus with hyperglycemia; I87.332 Chronic venous hypertension (idiopathic) with ulcer and inflammation of left lower extremity; L97.321 Non-pressure chronic ulcer of left ankle limited to breakdown of skin; S81.802A Unspecified open wound, left lower leg, initial encounter; I87.2 Venous insufficiency (chronic) (peripheral); R60.0 Localized edema; W20.8XXA Other cause of strike by thrown, projected or falling object, initial encounter; K46.9 Unspecified abdominal hernia without obstruction or gangrene

== ENCOUNTER → 2018-05-08 | Outpatient (CLI) | payer BC ==
[~2018-05-08] MED LIST changes: -COLLAGENASE OINTMENT 30 GM TUBE ONE; -LIDOCAINE VISC 2% SOLN 15 ML UDC ONE; -MINERAL OIL/PETROLAT/GLYCERI 2OZ CRM ONE; -MINERAL OIL/PETROLAT/GLYCERI 6OZ BTL ONE
== END ==
LOC: WCC 12:16
PROVIDERS: ATTEND Internal Medicine Infectious Disease
DX: E11.51 Type 2 diabetes mellitus with diabetic peripheral angiopathy without gangrene (principal); E11.65 Type 2 diabetes mellitus with hyperglycemia; I87.332 Chronic venous hypertension (idiopathic) with ulcer and inflammation of left lower extremity; L97.321 Non-pressure chronic ulcer of left ankle limited to breakdown of skin; S81.802A Unspecified open wound, left lower leg, initial encounter; R60.0 Localized edema; I87.2 Venous insufficiency (chronic) (peripheral); K46.9 Unspecified abdominal hernia without obstruction or gangrene; W20.8XXA Other cause of strike by thrown, projected or falling object, initial encounter

== ENCOUNTER → 2018-05-12 | Outpatient (CLI) | payer BC | LOC: WCC 14:04 | PROVIDERS: ATTEND Internal Medicine Infectious Disease | DX: E11.51 Type 2 diabetes mellitus with diabetic peripheral angiopathy without gangrene (principal); E11.65 Type 2 diabetes mellitus with hyperglycemia; L97.321 Non-pressure chronic ulcer of left ankle limited to breakdown of skin; I87.332 Chronic venous hypertension (idiopathic) with ulcer and inflammation of left lower extremity; S81.802A Unspecified open wound, left lower leg, initial encounter; I87.2 Venous insufficiency (chronic) (peripheral); R60.0 Localized edema; W20.8XXA Other cause of strike by thrown, projected or falling object, initial encounter; K46.9 Unspecified abdominal hernia without obstruction or gangrene ==

== ENCOUNTER → 2018-05-15 | Outpatient (CLI) | payer BC | LOC: WCC 10:22 | PROVIDERS: ATTEND Internal Medicine Infectious Disease | DX: E11.51 Type 2 diabetes mellitus with diabetic peripheral angiopathy without gangrene (principal); E11.65 Type 2 diabetes mellitus with hyperglycemia; L97.321 Non-pressure chronic ulcer of left ankle limited to breakdown of skin; I87.332 Chronic venous hypertension (idiopathic) with ulcer and inflammation of left lower extremity; S81.802A Unspecified open wound, left lower leg, initial encounter; R60.0 Localized edema; I87.2 Venous insufficiency (chronic) (peripheral); K46.9 Unspecified abdominal hernia without obstruction or gangrene; W20.8XXA Other cause of strike by thrown, projected or falling object, initial encounter ==

== ENCOUNTER → 2018-05-19 | Outpatient (CLI) | payer BC | LOC: WCC 11:51 | PROVIDERS: ATTEND Internal Medicine Infectious Disease | DX: E11.51 Type 2 diabetes mellitus with diabetic peripheral angiopathy without gangrene (principal); E11.65 Type 2 diabetes mellitus with hyperglycemia; I87.332 Chronic venous hypertension (idiopathic) with ulcer and inflammation of left lower extremity; L97.321 Non-pressure chronic ulcer of left ankle limited to breakdown of skin; S81.802A Unspecified open wound, left lower leg, initial encounter; R60.0 Localized edema; I87.2 Venous insufficiency (chronic) (peripheral); W20.8XXA Other cause of strike by thrown, projected or falling object, initial encounter; K46.9 Unspecified abdominal hernia without obstruction or gangrene ==

== ENCOUNTER → 2018-05-22 | Outpatient (CLI) | payer BC | LOC: WCC 11:33 | PROVIDERS: ATTEND Internal Medicine Infectious Disease | DX: E11.51 Type 2 diabetes mellitus with diabetic peripheral angiopathy without gangrene (principal); E11.65 Type 2 diabetes mellitus with hyperglycemia; I87.332 Chronic venous hypertension (idiopathic) with ulcer and inflammation of left lower extremity; L97.321 Non-pressure chronic ulcer of left ankle limited to breakdown of skin; S81.802A Unspecified open wound, left lower leg, initial encounter; R60.0 Localized edema; I87.2 Venous insufficiency (chronic) (peripheral); K46.9 Unspecified abdominal hernia without obstruction or gangrene; W20.8XXA Other cause of strike by thrown, projected or falling object, initial encounter ==

== ENCOUNTER → 2018-05-27 | Outpatient (CLI) | payer BC | LOC: WCC 04:00 | PROVIDERS: ATTEND Internal Medicine Infectious Disease | DX: E11.51 Type 2 diabetes mellitus with diabetic peripheral angiopathy without gangrene (principal); E11.65 Type 2 diabetes mellitus with hyperglycemia; I87.332 Chronic venous hypertension (idiopathic) with ulcer and inflammation of left lower extremity; L97.321 Non-pressure chronic ulcer of left ankle limited to breakdown of skin; S81.802A Unspecified open wound, left lower leg, initial encounter; I87.2 Venous insufficiency (chronic) (peripheral); R60.0 Localized edema; W20.8XXA Other cause of strike by thrown, projected or falling object, initial encounter; K46.9 Unspecified abdominal hernia without obstruction or gangrene ==

== ENCOUNTER → 2018-05-29 | Outpatient (CLI) | payer BC | LOC: WCC 11:21 | PROVIDERS: ATTEND Internal Medicine Infectious Disease | DX: E11.51 Type 2 diabetes mellitus with diabetic peripheral angiopathy without gangrene (principal); E11.65 Type 2 diabetes mellitus with hyperglycemia; I87.332 Chronic venous hypertension (idiopathic) with ulcer and inflammation of left lower extremity; L97.321 Non-pressure chronic ulcer of left ankle limited to breakdown of skin; S81.802A Unspecified open wound, left lower leg, initial encounter; I87.2 Venous insufficiency (chronic) (peripheral); R60.0 Localized edema; K46.9 Unspecified abdominal hernia without obstruction or gangrene; W20.8XXA Other cause of strike by thrown, projected or falling object, initial encounter ==

== ENCOUNTER → 2018-06-03 | Outpatient (CLI) | payer BC ==
[~2018-06-03] MED LIST changes: +MINERAL OIL/PETROLAT/GLYCERI 2OZ CRM ONE; +MINERAL OIL/PETROLAT/GLYCERI 6OZ BTL ONE
== END ==
LOC: WCC 10:19
PROVIDERS: ATTEND Podiatrist Foot & Ankle Surgery
DX: E11.51 Type 2 diabetes mellitus with diabetic peripheral angiopathy without gangrene (principal); E11.65 Type 2 diabetes mellitus with hyperglycemia; I87.332 Chronic venous hypertension (idiopathic) with ulcer and inflammation of left lower extremity; L97.321 Non-pressure chronic ulcer of left ankle limited to breakdown of skin; S81.802A Unspecified open wound, left lower leg, initial encounter; R60.0 Localized edema; I87.2 Venous insufficiency (chronic) (peripheral); W20.8XXA Other cause of strike by thrown, projected or falling object, initial encounter; K46.9 Unspecified abdominal hernia without obstruction or gangrene

== ENCOUNTER → 2018-06-05 | Outpatient (CLI) | payer BC ==
[~2018-06-05] MED LIST changes: -MINERAL OIL/PETROLAT/GLYCERI 2OZ CRM ONE; -MINERAL OIL/PETROLAT/GLYCERI 6OZ BTL ONE
== END ==
LOC: WCC 12:00
PROVIDERS: ATTEND Podiatrist Foot & Ankle Surgery
DX: E11.51 Type 2 diabetes mellitus with diabetic peripheral angiopathy without gangrene (principal); E11.65 Type 2 diabetes mellitus with hyperglycemia; I87.332 Chronic venous hypertension (idiopathic) with ulcer and inflammation of left lower extremity; L97.321 Non-pressure chronic ulcer of left ankle limited to breakdown of skin; S81.802A Unspecified open wound, left lower leg, initial encounter; I87.2 Venous insufficiency (chronic) (peripheral); R60.0 Localized edema; W20.8XXA Other cause of strike by thrown, projected or falling object, initial encounter; K46.9 Unspecified abdominal hernia without obstruction or gangrene

== ENCOUNTER → 2018-06-10 | Outpatient (CLI) | payer BC | LOC: WCC 15:22 | PROVIDERS: ATTEND Podiatrist Foot & Ankle Surgery | DX: E11.51 Type 2 diabetes mellitus with diabetic peripheral angiopathy without gangrene (principal); E11.65 Type 2 diabetes mellitus with hyperglycemia; I87.332 Chronic venous hypertension (idiopathic) with ulcer and inflammation of left lower extremity; L97.321 Non-pressure chronic ulcer of left ankle limited to breakdown of skin; S81.802A Unspecified open wound, left lower leg, initial encounter; I87.2 Venous insufficiency (chronic) (peripheral); R60.0 Localized edema; W20.8XXA Other cause of strike by thrown, projected or falling object, initial encounter; K46.9 Unspecified abdominal hernia without obstruction or gangrene ==

== ENCOUNTER → 2018-06-16 | Outpatient (CLI) | payer BC | LOC: WCC 10:54 | PROVIDERS: ATTEND Podiatrist Foot & Ankle Surgery | DX: E11.51 Type 2 diabetes mellitus with diabetic peripheral angiopathy without gangrene (principal); E11.65 Type 2 diabetes mellitus with hyperglycemia; I87.332 Chronic venous hypertension (idiopathic) with ulcer and inflammation of left lower extremity; L97.321 Non-pressure chronic ulcer of left ankle limited to breakdown of skin; S81.802A Unspecified open wound, left lower leg, initial encounter; I87.2 Venous insufficiency (chronic) (peripheral); R60.0 Localized edema; W20.8XXA Other cause of strike by thrown, projected or falling object, initial encounter; K46.9 Unspecified abdominal hernia without obstruction or gangrene ==

== ENCOUNTER → 2018-06-19 | Outpatient (CLI) | payer BC | LOC: WCC 12:38 | PROVIDERS: ATTEND Podiatrist Foot & Ankle Surgery | DX: E11.51 Type 2 diabetes mellitus with diabetic peripheral angiopathy without gangrene (principal); E11.65 Type 2 diabetes mellitus with hyperglycemia; I87.332 Chronic venous hypertension (idiopathic) with ulcer and inflammation of left lower extremity; L97.321 Non-pressure chronic ulcer of left ankle limited to breakdown of skin; S81.802A Unspecified open wound, left lower leg, initial encounter; I87.2 Venous insufficiency (chronic) (peripheral); R60.0 Localized edema; K46.9 Unspecified abdominal hernia without obstruction or gangrene; W20.8XXA Other cause of strike by thrown, projected or falling object, initial encounter ==

== ENCOUNTER → 2018-06-23 | Outpatient (CLI) | payer BC | LOC: WCC 12:04 | PROVIDERS: ATTEND Podiatrist Foot & Ankle Surgery | DX: E11.51 Type 2 diabetes mellitus with diabetic peripheral angiopathy without gangrene (principal); E11.65 Type 2 diabetes mellitus with hyperglycemia; I87.332 Chronic venous hypertension (idiopathic) with ulcer and inflammation of left lower extremity; L97.321 Non-pressure chronic ulcer of left ankle limited to breakdown of skin; S81.802A Unspecified open wound, left lower leg, initial encounter; I87.2 Venous insufficiency (chronic) (peripheral); R60.0 Localized edema; W20.8XXA Other cause of strike by thrown, projected or falling object, initial encounter; K46.9 Unspecified abdominal hernia without obstruction or gangrene ==

== ENCOUNTER → 2018-06-26 | Outpatient (CLI) | payer BC | LOC: WCC 10:04 | PROVIDERS: ATTEND Podiatrist Foot & Ankle Surgery | DX: E11.51 Type 2 diabetes mellitus with diabetic peripheral angiopathy without gangrene (principal); E11.65 Type 2 diabetes mellitus with hyperglycemia; I87.332 Chronic venous hypertension (idiopathic) with ulcer and inflammation of left lower extremity; L97.321 Non-pressure chronic ulcer of left ankle limited to breakdown of skin; S81.802A Unspecified open wound, left lower leg, initial encounter; I87.2 Venous insufficiency (chronic) (peripheral); R60.0 Localized edema; K46.9 Unspecified abdominal hernia without obstruction or gangrene; W20.8XXA Other cause of strike by thrown, projected or falling object, initial encounter ==

== ENCOUNTER → 2018-06-30 | Outpatient (CLI) | payer BC | LOC: WCC 09:56 | PROVIDERS: ATTEND Podiatrist Foot & Ankle Surgery | DX: E11.51 Type 2 diabetes mellitus with diabetic peripheral angiopathy without gangrene (principal); E11.65 Type 2 diabetes mellitus with hyperglycemia; I87.332 Chronic venous hypertension (idiopathic) with ulcer and inflammation of left lower extremity; L97.321 Non-pressure chronic ulcer of left ankle limited to breakdown of skin; S81.802A Unspecified open wound, left lower leg, initial encounter; I87.2 Venous insufficiency (chronic) (peripheral); R60.0 Localized edema; W20.8XXA Other cause of strike by thrown, projected or falling object, initial encounter; K46.9 Unspecified abdominal hernia without obstruction or gangrene ==

== ENCOUNTER → 2018-07-03 | Outpatient (CLI) | payer BC ==
[~2018-07-03] MED LIST changes: +MINERAL OIL/PETROLAT/GLYCERI 6OZ BTL ONE
== END ==
LOC: WCC 09:30
PROVIDERS: ATTEND Podiatrist Foot & Ankle Surgery
DX: E11.51 Type 2 diabetes mellitus with diabetic peripheral angiopathy without gangrene (principal); E11.65 Type 2 diabetes mellitus with hyperglycemia; I87.332 Chronic venous hypertension (idiopathic) with ulcer and inflammation of left lower extremity; L97.321 Non-pressure chronic ulcer of left ankle limited to breakdown of skin; S81.802A Unspecified open wound, left lower leg, initial encounter; I87.2 Venous insufficiency (chronic) (peripheral); R60.0 Localized edema; K46.9 Unspecified abdominal hernia without obstruction or gangrene; W20.8XXA Other cause of strike by thrown, projected or falling object, initial encounter

== ENCOUNTER → 2018-07-07 | Outpatient (CLI) | payer BC ==
[~2018-07-07] MED LIST changes: -MINERAL OIL/PETROLAT/GLYCERI 6OZ BTL ONE
== END ==
LOC: WCC 12:37
PROVIDERS: ATTEND Family Medicine Adult Medicine
DX: E11.51 Type 2 diabetes mellitus with diabetic peripheral angiopathy without gangrene (principal); E11.65 Type 2 diabetes mellitus with hyperglycemia; I87.332 Chronic venous hypertension (idiopathic) with ulcer and inflammation of left lower extremity; L97.321 Non-pressure chronic ulcer of left ankle limited to breakdown of skin; S81.802A Unspecified open wound, left lower leg, initial encounter; I87.2 Venous insufficiency (chronic) (peripheral); R60.0 Localized edema; W20.8XXA Other cause of strike by thrown, projected or falling object, initial encounter; K46.9 Unspecified abdominal hernia without obstruction or gangrene

== ENCOUNTER → 2018-07-10 | Outpatient (CLI) | payer BC | LOC: WCC 14:36 | PROVIDERS: ATTEND Podiatrist Foot & Ankle Surgery | DX: E11.51 Type 2 diabetes mellitus with diabetic peripheral angiopathy without gangrene (principal); E11.65 Type 2 diabetes mellitus with hyperglycemia; I87.332 Chronic venous hypertension (idiopathic) with ulcer and inflammation of left lower extremity; L97.321 Non-pressure chronic ulcer of left ankle limited to breakdown of skin; S81.802A Unspecified open wound, left lower leg, initial encounter; I87.2 Venous insufficiency (chronic) (peripheral); R60.0 Localized edema; K46.9 Unspecified abdominal hernia without obstruction or gangrene; W20.8XXA Other cause of strike by thrown, projected or falling object, initial encounter ==

== ENCOUNTER 2019-11-30 05:40 | Inpatient (IN) | payer BC, OTHER ==
[~2019-11-30] VITALS: Ht 182.9 cm; Wt 134.3 kg
[2019-11-30] MEDS ORDERED: CEFEPIME 1GM/NS 0.9% 50 ML 50 ML IV STA (06:43)
[2019-11-30] MEDS ORDERED: VANCOMYCIN 1GM/NS 250 ML 250 ML IV ONE ×2 (07:00→12:15)
[2019-11-30 07:06] LABS: BASOPHILS % 0.3 % (0.0-1.0); EOSINOPHILS # (AUTO) 0.2 (0.0-0.4); EOSINOPHILS % 2.3 % (0.0-6.0); HEMATOCRIT 46.8 % (38.2-49.6); HEMOGLOBIN 14.6 g/dL (14.0-18.0); LYMPHOCYTES # (AUTO) 1.9 (1.0-3.2); LYMPHOCYTES % 20.7 % (18.0-39.1); MEAN CORPUSCULAR HEMOGLOBIN 27.1 pg (28-32); MEAN CORPUSCULAR HGB CONC 31.2 g/dL (31-35); MEAN CORPUSCULAR VOLUME 86.8 fL (81-99); MONOCYTES # (AUTO) 0.8 (0.2-0.8); MONOCYTES % 8.3 % (4.4-11.3); NEUTROPHILS # (AUTO) 6.2 (2.1-6.9); PLATELET COUNT 294 x10e3/uL (140-360); RED BLOOD COUNT 5.39 x10e6/uL (4.3-5.7); RED CELL DISTRIBUTION WIDTH 15.6 % (11.7-14.4)
[2019-11-30] MEDS ORDERED: ASPIRIN 81 MG CHEW TAB PO ONE ×2 (07:15→11:45)
--- NOTE | 2019-11-30 07:18 | Emergency Department Note ---
History of Present Illnes History of Present Illness Chief Complaint: Extremity Trauma/Pain History of Present Illness This is a 59 year old male arrives to the ED with left lower extremity swelling and cellulitis. Patient states he was told by Dr. Coreas to come to the emergency department for further workup.. Chief Complaint Comment 59 Y/O MALE PATIENT AAOX3 PRESENTS TO THE ER C/O BLISTER TO LT RAINES THAT RUPTURED Friday; PT STATES HE WENT TO , GIVEN X2 IM ABX AND TOLD TO COME TO THE ER FOR FURTHER EVAL; DRAINAGE NOTED TO SITE; RPEORTS TAKING NORCO THIS AM; PT DENIES FEVER/CHILLS, N/V/D; NAD NOTED AT THIS TIME; RESP EVEN/UNLABORED; V/S/S. Historian: Patient Arrival Mode: Car Onset (how long ago): day(s) Radiation: Reports non-radiation Severity: moderate Onset quality: gradual Duration (how long): day(s) Timing of current episode: constant Progression: worsening Chronicity: new Treatments prior to arrival: none Past Medical/Family History Physician Review I have reviewed the patient's past medical and family history. Any updates have been documented here. Past Medical History Recent Fever: No Clinical Suspicion of Infectio: Yes New/Unexplained Change in Ment: No Past Medical History: Diabetes, DVT/PE Other Medical History: PVD HX DVT'S HERNIA RUPTURE CHRONIC FOOT PAIN Past Surgical History: Hernia Repair, Back Surgery Other Surgery: BACK SURGERY HERNIA REPAIR BOWEL RUPTURE TMA LEFT FOOT Family History Family history of heart diseas: Yes Other Last Tetanus: Y Review of Systems Review of Systems Constitutional: Reports as per HPI, Reports chills, Reports fever EENTM: Reports no symptoms Cardiovascular: Reports no symptoms Respiratory: Reports no symptoms Gastrointestinal: Reports no symptoms Genitourinary: Reports no symptoms Musculoskeletal: Reports no symptoms Integumentary: Reports as per HPI, Reports change in color, Reports rash Neurological: Reports no symptoms Psychological: Reports no symptoms Endocrine: Reports no symptoms Hematological/Lymphatic: Reports no symptoms Physical Exam Related Data Allergies: Coded Allergies: No Known Allergies (Unverified , 04/04/14) Triage Vital Signs Vital Signs Date Time Temp Pulse Resp B/P (MAP) Pulse Ox O2 Delivery O2 Flow Rate FiO2 11/30/19 06:37 97.1 93 20 145/79 97 Vital signs reviewed: Yes Physical Exam CONSTITUTIONAL Constitutional: Present well-developed, Present well-nourished, Present morbidly obese HENT HENT: Present normocephalic, Present atraumatic, Present oropharynx clear/mo ist, Present nose normal HENT L/R: Present left ext ear normal, Present right ext ear normal EYES Eyes: Reports PERRL, Reports conjunctivae normal NECK Neck: Present ROM normal PULMONARY Pulmonary: Present effort normal, Present breath sounds normal CARDIOVASCULAR Cardiovascular: Present regular rhythm, Present heart sounds normal, Present capillary refill normal, Present normal rate GASTROINTESTINAL Abdominal: Present soft, Present nontender, Present bowel sounds normal GENITOURINARY Genitourinary: Present exam deferred SKIN Skin: Present warm, Present dry MUSCULOSKELETAL Musculoskeletal: Present tenderness, Present swelling, Present other (marked left lower extremity cellulitis) NEUROLOGICAL Neurological: Present alert, Present oriented x 3, Present no gross motor or sensory deficits PSYCHOLOGICAL Psychological: Present mood/affect normal, Present judgement normal Results Laboratory Result Diagram: 11/30/19 0651 Laboratory Laboratory Tests Test 11/30/19 06:51 White Blood Count 9.17 x10e3/uL (4.8-10.8) Red Blood Count 5.39 x10e6/uL (4.3-5.7) Hemoglobin 14.6 g/dL (14.0-18.0) Hematocrit 46.8 % (38.2-49.6) Mean Corpuscular Volume 86.8 fL (81-99) Mean Corpuscular Hemoglobin 27.1 pg (28-32) Mean Corpuscular Hemoglobin Concent 31.2 g/dL (31-35) Red Cell Distribution Width 15.6 % (11.7-14.4) Platelet Count 294 x10e3/uL (140-360) Neutrophils (%) (Auto) 68.0 % (38.7-80.0) Lymphocytes (%) (Auto) 20.7 % (18.0-39.1) Monocytes (%) (Auto) 8.3 % (4.4-11.3) Eosinophils (%) (Auto) 2.3 % (0.0-6.0) Basophils (%) (Auto) 0.3 % (0.0-1.0) Neutrophils # (Auto) 6.2 (2.1-6.9) Lymphocytes # (Auto) 1.9 (1.0-3.2) Monocytes # (Auto) 0.8 (0.2-0.8) Eosinophils # (Auto) 0.2 (0.0-0.4) Basophils # (Auto) 0.0 (0.0-0.1) Absolute Immature Granulocyte (auto 0.04 x10e3/uL (0-0.1) Assessment & Plan Assessment & Plan Final Impression: (1) Cellulitis Depart Disposition: ADMITTED Last Vital Signs Date Time Temp Pulse Resp B/P (MAP) Pulse Ox O2 Delivery O2 Flow Rate FiO2 11/30/19 06:37 97.1 93 20 145/79 97 Home Meds Active Scripts Clindamycin Hcl (CLINDAMYCIN HCL) 150 Mg Capsule, 300 MG PO TID for 14 Days Prov:NATALIA FABIAN MD 02/26/15 Reported Medications Oxycodone Hcl (OXYCONTIN) 10 Mg Tab.er.12h, 20 MG PO TID 01/09/18 Rivaroxaban (XARELTO) 20 Mg Tablet, 20 MG PO DAILY 01/09/18 Hydrocodone Bit/Acetaminophen (HYDROCODON-ACETAMINOPHN 10-325) 1 Each Tablet, 1 TAB PO Q4HR for PAIN 02/21/15 Medications in the ED Cefepime HCl 50 ml @ 100 mls/hr Q24H STAT IV ; Start 11/30/19 at 06:43; Stop 11/30/19 at 07:12; Status DC Vancomycin HCl 250 ml @ 200 mls/hr NOW ONCE IV ; Start 11/30/19 at 07:00; Stop 11/30/19 at 08:14 KRISTIN MADISON DO Nov 30, 2019 07:18
[2019-11-30 07:29] LABS: ALANINE AMINOTRANSFERASE 24 IU/L (0-55); ALBUMIN 3.3 g/dL (3.5-5.0); ALBUMIN/GLOBULIN RATIO 0.8 (0.8-2.0); ALKALINE PHOSPHATASE 87 IU/L (40-150); ANION GAP 12.9 mmol/L (8-16); BLOOD UREA NITROGEN 11 mg/dL (7-26); BUN/CREATININE RATIO 9 (6-25); CALCIUM 9.1 mg/dL (8.4-10.2); CARBON DIOXIDE 24 mmol/L (22-29); CHLORIDE 103 mmol/L (98-107); CREATINE KINASE 178 IU/L (30-200); CREATININE, SERUM 1.19 mg/dL (0.72-1.25); EST GLOMERULAR FILTRATION RATE > 60 ML/MIN (60-); GLUCOSE 281 mg/dL (74-118); POTASSIUM 3.9 mmol/L (3.5-5.1); SODIUM 136 mmol/L (136-145)
--- NOTE | 2019-11-30 09:30 | NUR ---
PATIENT REFUSED CHEST XRAY AT THIS TIME
--- NOTE | 2019-11-30 09:46 | NUR ---
CALLED TO TRIAGE, NO ANSWER, OTHER PTS REPORT HE WENT OUT TO HIS CAR.
--- NOTE | 2019-11-30 10:15 | Diagnostic Imaging Report ---
EXAM: CHEST SINGLE (PORTABLE) DATE: 11/30/2019 9:13 AM INDICATION: Cellulitis COMPARISON: 01/10/2018 FINDINGS: The trachea is midline. The lungs are symmetrically expanded without evidence for large focal consolidation, pneumothorax, or significant pleural effusion. The cardiomediastinal silhouette and pulmonary vasculature are within normal limits. No acute osseous abnormality is identified. The surrounding soft tissues are unremarkable. IMPRESSION: No acute cardiopulmonary process identified. Signed by: Dr. Jonathan Wen MD on 11/30/2019 10:12 AM
[2019-11-30 10:45] VITALS: BP 156/82
--- NOTE | 2019-11-30 10:45 | NUR ---
PATIENT RECEIVED FROM ER PER WHEEL CHAIR. ALERT AND VERBALLY RESPONSIVE, DENIED PAIN AT THIS TIME. SKIN WARM AND DRY TO TOUCH; REDNESS AND SWELLING TO LEFT LEG, LEFT TMA, MULTIPLE WOUNDS TO LEFT LEG. RESP EVEN AND UNLABORED, ABDOMEN LARGE AND ROUND WITH RIGHT ABDOMEN HERNIA. BED IN LOWER POSITION, CALL LIGHT AT REACH.
[2019-11-30 11:39] VITALS: BP 156/82
[2019-11-30] MEDS ORDERED: CEFEPIME 1GM/NS 0.9% 50 ML 50 ML IV ONE (11:45)
[2019-11-30] MEDS ORDERED: SODIUM CHLORIDE 0.9% 250ML 250 ML ONE (12:08)
--- NOTE | 2019-11-30 15:14 | NUR ---
PATIENT IN BED RESTING WITH EYES CLOSED, NO DISTRESS NOTED. CALL LIGHT AT REACH.
[2019-11-30 15:21] VITALS: BP 152/88
[2019-11-30 15:58] LABS: CREATINE KINASE MB 2.4 ng/mL (0-5.0)
[2019-11-30] MEDS ORDERED: DEXTROSE 50% SYRINGE 50 ML IV PRN (18:45)
--- NOTE | 2019-11-30 19:12 | NUR ---
BEDSIDE SHIFT REPORT GIVEN TO ON COMING NURSE.
[2019-11-30 20:01] VITALS: BP 144/98
[2019-11-30 20:08] VITALS: BP 144/98
[2019-11-30] MEDS: ATORVASTATIN 40 MG TAB PO SCH (20:29)
[2019-11-30] MEDS: INSULIN LISPRO 100 UNIT/1 ML 3ML VIAL SQ SCH (20:45)
[2019-11-30] MEDS: INSULIN GLARGINE 100 UNITS/ML VIAL SQ SCH (20:55)
[2019-11-30] MEDS ORDERED: ATORVASTATIN 20 MG TAB PO SCH (21:00)
--- NOTE | 2019-11-30 21:30 | NUR ---
REPORT GIVEN TO DM SHELTON.
[2019-11-30] MEDS: HYDROCODONE/APAP 10MG-325MG TAB PO PRN (21:33)
[2019-11-30 23:25] VITALS: BP 149/88
[2019-12-01] VITALS (7 sets, daily range): BP systolic 136–161; BP diastolic 68–101
--- NOTE | 2019-12-01 00:36 | History and Physical ---
HISTORY OF PRESENT ILLNESS: A 59-year-old male, who came in with left lower leg erythema, tenderness, and diabetic foot ulcer. The patient is admitted to the hospital for diabetic leg ulcer. PAST MEDICAL HISTORY: History of hypertension, history of peripheral vascular disease, history of lymphedema, history of DVT in the past, history of multiple DVTs, history of diabetes mellitus with neuropathy. The patient's other diagnoses include testicular dysfunction, vitamin D deficiency, idiopathic sleep-related nonobstructive hypoventilation, and morbid obesity. PAST SURGICAL HISTORY: The patient also has surgical history of back surgery, hernia repair, left transmetatarsal amputation of the left foot, hernia repair, and bowel rupture. SOCIAL HISTORY: No EtOH. History of smoking in the past, currently, nonsmoker. FAMILY HISTORY: Father is , diagnosed with diabetes, heart disease, and mother has also history of heart disease. MEDICATIONS: He takes at home are atorvastatin 20 mg, Xarelto 20 mg once a day, NovoLog FlexPen sliding scale, Jardiance 10 mg, Levemir 50 units a day, losartan 50 mg a day. REVIEW OF SYSTEMS: Negative for chest pain. No shortness of breath. No nausea. No vomiting. No diarrhea. No constipation. No rectal bleeding. No hematochezia. No hematemesis. Positive for left lower extremity redness, erythema, tenderness. ALLERGIES: NO KNOWN DRUG ALLERGIES. PHYSICAL EXAMINATION: VITAL SIGNS: Temperature is 97.5, pulse of 70, respirations of 21, blood pressure is 152/82, pulse oximetry of 98%. HEENT: Normocephalic, atraumatic. Pupils are reactive to light and accommodation. CVS: S1 and S2 normal. Regular rate and rhythm. ABDOMEN: Soft, nontender, nondistended, right-sided ventral hernia with multiple ulcerations are present. EXTREMITIES: The patient's right lower extremity with decreased pulses. The patient's left lower extremity with chronic venous changes, positive for an ulceration on the left side of the calf with discharge, which is very pussy and left lower extremity reveals left TMA. LABORATORY VALUES: White count is 9.17, hemoglobin of 14.6, hematocrit of 46.8, and platelet count is 294. Chemistry shows sodium 136, potassium 3.9, BUN of 11, creatinine of 1.19, glucose 281. AST 23, ALT 24. Troponin is less than 0.001. The next troponin was 0.005. Glucoses have been running in the 137 to 281. SEROLOGY: Coronavirus pending at this time. IMAGING STUDIES: Chest x-ray was apparently done, but I do not see it. MICROBIOLOGY: Blood cultures are pending. ASSESSMENT: Mr. Benigno Madrid with cellulitis of the left lower extremities with ulcer. The patient has been started on vancomycin and cefepime. The patient is currently has been given 2 doses of it. PLAN: Continue on the vancomycin and cefepime. Continue monitoring his trough in the third dose. MRI of the lower extremities will be ordered and also we will go ahead and order a venous and arterial Doppler of the lower extremity. The patient will be restarted on his Xarelto 20 mg for chronic DVTs and I will also restart atorvastatin at a high dose of 40 mg. Insulin sliding scale will be instituted and also his Levemir will be restarted. We will continue to monitor the patient and pain management for his low back will be [place] 10/325 q.6 hours for pain relief. Further recommendation per clinical course. We will continue to monitor the patient and we will probably consult for ID and also we will get Wound Care for wound cultures. MD ANGELA Londono/MOUNIKA /[id number]
[2019-12-01] MEDS: VANCOMYCIN 1GM/NS 250 ML 250 ML IV SCH ×2 (03:12→13:32)
[2019-12-01] MEDS: HYDROCODONE/APAP 10MG-325MG TAB PO PRN ×2 (04:16→11:37)
[2019-12-01 06:09] LABS: BASOPHILS # (AUTO) 0.1 (0.0-0.1); BASOPHILS % 0.5 % (0.0-1.0); EOSINOPHILS # (AUTO) 0.2 (0.0-0.4); EOSINOPHILS % 2.2 % (0.0-6.0); HEMATOCRIT 45.2 % (38.2-49.6); HEMOGLOBIN 14.4 g/dL (14.0-18.0); LYMPHOCYTES # (AUTO) 1.4 (1.0-3.2); LYMPHOCYTES % 13.6 % (18.0-39.1); MEAN CORPUSCULAR HGB CONC 31.9 g/dL (31-35); MEAN CORPUSCULAR VOLUME 87.9 fL (81-99); MONOCYTES # (AUTO) 0.9 (0.2-0.8); MONOCYTES % 8.6 % (4.4-11.3); NEUTROPHILS # (AUTO) 7.9 (2.1-6.9); NEUTROPHILS % 74.6 % (38.7-80.0); PLATELET COUNT 257 x10e3/uL (140-360); RED BLOOD COUNT 5.14 x10e6/uL (4.3-5.7); RED CELL DISTRIBUTION WIDTH 15.1 % (11.7-14.4)
[2019-12-01 06:41] LABS: ALANINE AMINOTRANSFERASE 24 IU/L (0-55); ALBUMIN/GLOBULIN RATIO 0.8 (0.8-2.0); ALKALINE PHOSPHATASE 75 IU/L (40-150); ANION GAP 12.2 mmol/L (8-16); BLOOD UREA NITROGEN 11 mg/dL (7-26); BUN/CREATININE RATIO 11 (6-25); CALCIUM 9.2 mg/dL (8.4-10.2); CARBON DIOXIDE 26 mmol/L (22-29); CHLORIDE 108 mmol/L (98-107); CREATININE, SERUM 0.96 mg/dL (0.72-1.25); EST GLOMERULAR FILTRATION RATE > 60 ML/MIN (60-); GLUCOSE 132 mg/dL (74-118); POTASSIUM 4.2 mmol/L (3.5-5.1); SODIUM 142 mmol/L (136-145)
[2019-12-01] MEDS: MORPHINE SULFATE INJ 4 MG/ML INJ 1ML IV PRN ×2 (07:28→16:50)
[2019-12-01] MEDS: INSULIN LISPRO 100 UNIT/1 ML 3ML VIAL SQ SCH ×4 (07:30→21:00)
--- NOTE | 2019-12-01 07:30 | NUR ---
PATIENT IS AWAKE, ALERT, AND IS IN STABLE CONDITION WITH NO S/S OF RESPIRATORY DISTRESS. PATIENT C/O LEFT LOWER LEG PAIN 10/10 DURING SHIFT CHANGE; PAIN MEDICATION ADMINISTERED TO PATIENT. LEFT LOWER EXTREMITY DRESSING IS INTACT AND DRY- NO DRAINAGE NOTED.APPLIED, MINIMUM DRAINAGE NOTED. LEFT TMA NOTED; PATIENT REFUSED TO WEAR NON-SKID SOCK ON RIGHT FOOT. TELEMETRY APPLIED. CALL LIGHT IS WITHIN REACH, PATIENT INSTRUCTED TO CALL FOR ASSISTANCE NEEDED.
--- NOTE | 2019-12-01 08:03 | Progress Note ---
DATE: SUBJECTIVE: The patient is a 59-year-old gentleman, who came in with cellulitis of the left lower extremities. Currently on vancomycin and cefepime. The patient has a history of chronic DVT back on Xarelto at this time, also back on his losartan and his atorvastatin. Currently, complaints of pain when he walked to the bathroom. Otherwise, stable. No chest pain. No shortness of breath. No nausea. No vomiting. No diarrhea. No constipation. No rectal bleeding. No hematochezia. OBJECTIVE: VITAL SIGNS: Temperature is 98.1, pulse of 63, respirations of 18, blood pressure is 145/101. HEENT: Normocephalic, atraumatic. Pupils are reactive. The patient is morbidly obese. CVS: S1 and S2 distant. Regular rate and rhythm. ABDOMEN: Soft, nontender. Positive for right ventral hernia. EXTREMITIES: No clubbing. Left-sided erythema, redness and also discharge from calf area. IMAGING: The patient is pending an MRI, arterial Doppler and venous Doppler. ASSESSMENT: Cellulitis of the left lower extremity. The patient is status post TMA of the left lower extremity. The patient with uncontrolled diabetes mellitus, hypertension, hyperlipidemia, and peripheral arterial disease and history of deep venous thrombosis. PLAN: Continue antibiotics right now and await MRI, arterial Doppler and venous Doppler. Continue with current antibiotic regimen. We will escalate his pain medication to morphine now 4 mg q.6 hours as needed the patient has a pain of 10/10 in intensity on putting the foot down. Further recommendation per clinical course. We will continue to monitor the patient. The patient is also on insulin sliding scale and on his Lantus too. Trend his blood sugars and also trend his white count on a regular basis. MD ANGELA Londono/TRINYL /[id number]
[2019-12-01] MEDS: LOSARTAN POTASSIUM 100 MG TAB PO SCH (08:09)
--- NOTE | 2019-12-01 11:32 | Diagnostic Imaging Report ---
MRI of the left foot without contrast. History: Infection. Foot pain. Osteomyelitis.. Technique: Multiplanar multisequence MRI of the foot without contrast Comparison: MRI 01/12/2018 FINDINGS: BONES: Serpentine intramedullary signal within the distal tibial metadiaphysis without adjacent edema. No acute fracture or osteonecrosis. Status post partial amputation of the foot at the level of the tarsometatarsal joints. JOINTS: Multifocal degenerative changes, most notably moderate of the tibiotalar joint. SOFT TISSUES: Mild nonspecific superficial soft tissue edema. Skin thickening with skin ulceration and mild soft tissue edema at the distal soft tissue stump could be due to cellulitis. No fluid collection. IMPRESSION: Skin thickening with skin ulceration and mild soft tissue edema at the distal soft tissue stump could be due to cellulitis. No osteomyelitis. No soft tissue abscess. 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 Signed by: Dr. Edgar Mishra M.D. on 12/01/2019 11:29 AM
[2019-12-01] MEDS: CEFEPIME 1GM/NS 0.9% 50 ML 50 ML IV SCH (11:42)
[2019-12-01] MEDS ORDERED: SODIUM CHLORIDE 0.9% 250ML 250 ML ONE (11:44)
--- NOTE | 2019-12-01 12:28 | NUR ---
WOUND CARE CONSULT FOR 59 YO MALE HX OF DVT, CELLULITIS, DIABETES BATOOL 20 ON CONSERVATIVE PUP STATUS AND INTERVENTIONS AND VISCO MATTRESS LABS: WBC-10.59 HGB_14.4 GLUCOSE-132 SKIN ASSESSMENT COMPLETE PATIENT PRESENTS WITH LEFT LOWER LEG UNGRADEABLE ULCERATION 90% SLOUGH COVERED SURFACE LEFT PAST TMA SITE CALLUS EDGES WITH SLOUGH COVERED WOUND BASE 1.5CM X2.5CM RECOMMENDATIONS: NURSING TO CONTINUE TO MAINTAIN CONSERVATIVE PUP STATUS AND INTERVENTIONS AND VISCO MATTRESS NURSING TO CONTINUE TO ASSIST PATIENT OUT OF BED FOR MEALS AND MUCH TOLERATED NURSING TO CONTINUE TO ASSIST PATIENT NEEDED WITH MEALS AND NUTRITIONAL SUPPLEMENTS TO ENSURE PROPER REQUIREMENTS FOR HEALING NURSING TO CONTINUE TO OFFLOAD FEET AND HEELS NEEDED WITH PILLOW SUSPENSION WHEN IN BED NURSING TO CLEAN LEFT LATERAL LOWER LEG UNGRADEABLE ULCERATION AND LEFT TMA SITE CALLUS EDGES WITH SLOUGH COVERED WOUND WITH NORMAL SALINE DAILY AND APPLY SANTYL OINTMENT 4X4 AND ALLEVYN FOAM DRESSING
[2019-12-01] MEDS: COLLAGENASE 5 GM TUBE TP SCH (13:32)
[2019-12-01] MEDS: RIVAROXABAN 20 MG TABLET PO SCH (16:04)
--- NOTE | 2019-12-01 19:25 | NUR ---
PATIENT IS RESTING IN BED-IN STABLE CONDITION WITH NO S/S OF RESPIRATORY DISTRESS. NO PAIN VOICED. CALL LIGHT IS WITHIN REACH, PATIENT INSTRUCTED TO CALL FOR ASSISTANCE NEEDED. REPORT GIVEN TO ONCOMING NURSE.
[2019-12-01] MEDS: ATORVASTATIN 40 MG TAB PO SCH (21:00)
[2019-12-01] MEDS: INSULIN GLARGINE 100 UNITS/ML VIAL SQ SCH (21:00)
[2019-12-02] VITALS (8 sets, daily range): BP systolic 136–163; BP diastolic 70–93
[2019-12-02] MEDS: VANCOMYCIN 1GM/NS 250 ML 250 ML IV SCH ×3 (01:00→20:22)
[2019-12-02] MEDS: MORPHINE SULFATE INJ 4 MG/ML INJ 1ML IV PRN ×3 (01:30→19:05)
[2019-12-02 06:29] LABS: ANION GAP 12.3 mmol/L (8-16); BLOOD UREA NITROGEN 11 mg/dL (7-26); BUN/CREATININE RATIO 12 (6-25); CALCIUM 8.9 mg/dL (8.4-10.2); CARBON DIOXIDE 26 mmol/L (22-29); CHLORIDE 109 mmol/L (98-107); CREATININE, SERUM 0.94 mg/dL (0.72-1.25); EST GLOMERULAR FILTRATION RATE > 60 ML/MIN (60-); GLUCOSE 109 mg/dL (74-118); POTASSIUM 4.3 mmol/L (3.5-5.1); SODIUM 143 mmol/L (136-145)
[2019-12-02] MEDS ORDERED: SODIUM CHLORIDE 0.9% 250ML 250 ML ONE (07:13)
--- NOTE | 2019-12-02 07:25 | NUR ---
PATIENT IS IN STABLE CONDITION WITH NO S/S OF RESPIRATORY DISTRESS. PATIENT C/O LEFT LEG PAIN. DRESSING APPLIED TO LEFT LEG. IV ANTIBIOTIC INFUSING. CALL LIGHT IS WITHIN REACH, PATIENT INSTRUCTED TO CALL FOR ASSISTANCE NEEDED.
[2019-12-02] MEDS: INSULIN LISPRO 100 UNIT/1 ML 3ML VIAL SQ SCH ×4 (07:30→21:14)
[2019-12-02] MEDS: LOSARTAN POTASSIUM 100 MG TAB PO SCH (08:00)
[2019-12-02] MEDS: HYDROCODONE/APAP 10MG-325MG TAB PO PRN ×3 (08:15→22:00)
[2019-12-02] MEDS: COLLAGENASE 5 GM TUBE TP SCH (11:23)
[2019-12-02] MEDS: CEFEPIME 1GM/NS 0.9% 50 ML 50 ML IV SCH (11:23)
[2019-12-02] MEDS: RIVAROXABAN 20 MG TABLET PO SCH (16:43)
--- NOTE | 2019-12-02 19:05 | NUR ---
Received patient awake, not in distress, call light within easy reach, advised to call for assistance anytime when needed, will continue to monitor
--- NOTE | 2019-12-02 19:07 | NUR ---
PATIENT IS IN STABLE CONDITION WITH NO S/S OF RESPIRATORY DISTRESS. PAIN MEDICATION ADMINISTERED TO PATIENT FOR LEFT LEG PAIN 11/09. CALL LIGHT IS WITHIN REACH, PATIENT INSTRUCTED TO CALL FOR ASSISTANCE NEEDED. REPORT GIVEN TO ONCOMING NURSE.
--- NOTE | 2019-12-02 19:39 | NUR ---
consulted Dr. Suzi Flowers for PAD, Dr. Marquez is production control expediter, left VM
[2019-12-02] MEDS: ATORVASTATIN 40 MG TAB PO SCH (20:24)
[2019-12-02] MEDS: INSULIN GLARGINE 100 UNITS/ML VIAL SQ SCH (21:14)
--- NOTE | 2019-12-02 21:36 | Progress Note ---
DATE: SUBJECTIVE: The patient is a 59-year-old gentleman, who came in with left lower extremity cellulitis and wound. The patient is currently on vancomycin and cefepime, feeling much better. He has history of chronic DVTs and is on Xarelto for the same. The patient's leg pain is better and has undergone MRI, arterial Doppler and venous Doppler. OBJECTIVE: VITAL SIGNS: Temperature is 97.4, pulse of 74, respirations of 20, blood pressure is 155/93, pulse oximetry of 99%. HEENT: Normocephalic and atraumatic. Pupils are reactive to light and accommodation. CVS: S1 and S2 are normal. Regular rate and rhythm. ABDOMEN: Soft, nontender, nondistended. EXTREMITIES: Left lower extremity is status post TMA, has erythema and redness, which is decreased. The patient also has a wound on the left side, which is also better. Wound culture has been done. LABORATORY VALUES: White count is 10.59, hemoglobin of 14.4, hematocrit of 44. Chemistry shows sodium 143, potassium 4.3, BUN of 11, creatinine 0.94, glucoses in the range of 130s to 170s. SEROLOGY: Coronavirus not detected. IMAGING STUDIES: Foot MRI showed no osteomyelitis. Skin thickening and skin ulceration of the distal soft tissue stump, could be due to cellulitis. Lower extremity ultrasound was negative for initial preliminary data and also lower extremity arterial Doppler showed multivessel disease. ASSESSMENT: Mr. Benigno Madrid with: 1. Cellulitis of the left lower extremity. Plan to continue vancomycin and cefepime. 2. Check vancomycin trough. 3. We will consult Cardiology for peripheral artery disease. 4. Diabetes with peripheral artery disease, neuropathy, and nephropathy. Continue to monitor the patient's diabetes. Further recommendation per clinical course. We will continue to monitor the patient. The patient is on atorvastatin 40 mg for his peripheral arterial disease. MD HENRY LondonoJ/MODL /[id number]
[2019-12-03] VITALS (8 sets, daily range): BP systolic 146–169; BP diastolic 80–94
[2019-12-03] MEDS: MORPHINE SULFATE INJ 4 MG/ML INJ 1ML IV PRN ×3 (02:45→18:00)
[2019-12-03] MEDS: HYDROCODONE/APAP 10MG-325MG TAB PO PRN ×3 (06:15→21:41)
[2019-12-03] MEDS: INSULIN LISPRO 100 UNIT/1 ML 3ML VIAL SQ SCH ×4 (07:30→20:57)
[2019-12-03] MEDS: VANCOMYCIN 1GM/NS 250 ML 250 ML IV SCH ×2 (09:20→20:56)
[2019-12-03] MEDS: LOSARTAN POTASSIUM 100 MG TAB PO SCH (09:22)
[2019-12-03] MEDS ORDERED: SODIUM CHLORIDE 0.9% 250ML 250 ML ONE (11:16)
[2019-12-03] MEDS: CEFEPIME 1GM/NS 0.9% 50 ML 50 ML IV SCH (14:00)
[2019-12-03] MEDS: RIVAROXABAN 20 MG TABLET PO SCH (17:13)
--- NOTE | 2019-12-03 17:45 | Progress Note ---
DATE: SUBJECTIVE: The patient is a 59-year-old gentleman who came in with left lower extremity cellulitis. The patient is currently feeling better. Still has a lot of pain when the patient walks and also when the foot is hanging down. Seen by wedding decorator, scheduled for left heart catheterization on Friday. CURRENT MEDICATIONS: Atorvastatin, cefepime, collagenase for wound care, insulin glargine, losartan, Xarelto, and vancomycin. PHYSICAL EXAMINATION: VITAL SIGNS: Temperature is 97.9, T-max of 98, pulse 74, respirations 20, blood pressure is 169/94, and pulse oximetry of 98%. HEENT: Normocephalic and atraumatic. Pupils are reactive. CVS: S1 and S2 normal. Regular rate and rhythm. ABDOMEN: Soft, nontender, nondistended. EXTREMITIES: No clubbing. Left leg is status post TMA. Decreased pulses. Wound is dressed with collagenase. Decreased erythema, decreased tenderness. LABORATORY VALUES: Chemistries are stable. Blood sugars are running in the 110s to 130s. Last potassium is 4.3. MICROBIOLOGY: Gram stain came with Serratia marcescens, sensitive to cefepime. ASSESSMENT: Mr. Benigno Madrid with cellulitis of the left lower extremity. No osteomyelitis noted by MRI. Peripheral artery disease. PLAN: Stop the vancomycin. Continue cefepime at this time. Vancomycin trough is 5.2. Continue to monitor the patient. Scheduled for left heart catheterization for peripheral artery disease. Other diagnoses include diabetes with neuropathy, diabetes with peripheral angiopathy. Further recommendation per clinical course. We will continue to monitor the patient. MD ANGELA Londono/MODL /[id number]
[2019-12-03] MEDS: COLLAGENASE 5 GM TUBE TP SCH (18:11)
--- NOTE | 2019-12-03 18:12 | NUR ---
Wound care completed to left lateral lower extremity.
--- NOTE | 2019-12-03 19:29 | NUR ---
Patient received sitting up in bed. AAO x 3. Patient had no complaints of pain. Respirations even and non-labored. Safety measures in place. Patient instructed to call for assistance when needed. Call light within reach.
[2019-12-03] MEDS: ATORVASTATIN 40 MG TAB PO SCH (20:56)
[2019-12-03] MEDS: INSULIN GLARGINE 100 UNITS/ML VIAL SQ SCH (21:00)
[2019-12-04] VITALS (8 sets, daily range): BP systolic 134–164; BP diastolic 78–96
[2019-12-04] MEDS: MORPHINE SULFATE INJ 4 MG/ML INJ 1ML IV PRN ×3 (02:00→17:35)
--- NOTE | 2019-12-04 03:57 | Consultation ---
DATE OF CONSULTATION: 12/03/2019 Cardiology Consultation REQUESTING PHYSICIAN: Henok Coreas MD REASON FOR CONSULTATION: Peripheral arterial disease. HISTORY OF PRESENT ILLNESS: This is a 59-year-old male with history of diabetes mellitus, hypertension, peripheral arterial disease, and recurrent DVT status post IVC filter, who presents with complaints of left lower extremity ulcer. He reports he was evaluated by his primary physician Dr. Coreas and sent to the ER for IV antibiotics. During admission, the patient had left motion arterial Doppler, which suggested monophasic waveforms in the left common femoropopliteal posterior tibial and anterior tibial arteries, which suggest hemodynamically significant aortoiliac disease. Cardiology is therefore consulted for further evaluation. He denies any cardiac complaints, otherwise denies chest pain, shortness of breath, palpitations, orthopnea, or PND. REVIEW OF SYSTEMS: Negative except as per HPI. PAST MEDICAL HISTORY: Denies. PAST SURGICAL HISTORY: 1. Hernia surgery. 2. Back surgery. 3. Resection of ischemic bowel secondary to bowel rupture. 4. Left TMA. ALLERGIES: PLEASE SEE EMR. MEDICATIONS: Please see medication list. SOCIAL HISTORY: He smokes a pack a day since the age of 13. No alcohol or illicit drugs. FAMILY HISTORY: Pertinent for father with coronary bypass. PHYSICAL EXAMINATION: VITAL SIGNS: Awake, alert, well-developed, well-nourished man, in no acute distress. HEENT: Normocephalic, atraumatic. Pupils equal. No scleral icterus. NECK: Supple. No thyroid or cervical lymphadenopathy. No carotid bruits. LUNGS: Clear to auscultation bilaterally. No wheezes or crackles. CARDIOVASCULAR: Normal rate. Regular rhythm. No murmur. Normal S1, S2. ABDOMEN: Soft and nontender. EXTREMITIES: Trace edema. The patient is status post left TMA with skin changes consistent chronic venous stasis. Dressing is present on the left lateral lower leg. NEURO: Nonfocal exam. LABORATORY DATA: None today. IMPRESSION: 1. Left lower extremity ulcer. 2. Peripheral arterial disease. 3. Hypertension. 4. Diabetes mellitus. 5. History of recurrent DVT, status post IVC filter. RECOMMENDATIONS: IV antibiotics per primary service continue wound care. Aspirin 81 mg p.o. daily. Continue atorvastatin and Xarelto. Given the finding on lower extremity Doppler, he will need peripheral angiogram planned for Friday given the holiday weekend. Continue current cardiac medications otherwise, increase losartan for blood pressure control. Thank you for this consult. We will continue to follow. Sonia Marquez MD ABS/MODL /[id number]
[2019-12-04] MEDS: INSULIN LISPRO 100 UNIT/1 ML 3ML VIAL SQ SCH ×4 (07:30→20:50)
--- NOTE | 2019-12-04 08:07 | Progress Note ---
DATE: SUBJECTIVE: The patient is in 210, comes in with cellulitis of left lower extremity with a history of diabetic neuropathy and nephropathy, and currently angiopathy. The patient's arterial Dopplers revealed significant peripheral arterial disease, due for cardiac cath on Friday to delineate. OBJECTIVE: VITAL SIGNS: Temperature is 97.6, pulse of 60, respirations of 20, blood pressure is 137/80, and pulse oximetry of 98%. HEENT: Normocephalic and atraumatic. Pupils are reactive. CVS: S1 and S2 normal. Regular rate and rhythm. ABDOMEN: Soft, nontender, and nondistended. EXTREMITIES: Left lower extremity status post TMA with ulceration of the left calf area anteriorly, otherwise decreased pulses. MICROBIOLOGY: Wound culture with Serratia. ASSESSMENT: Mr. Benigno Madrid with cellulitis of the left lower extremity. The patient is scheduled for a cardiac cath for his peripheral arterial disease. Diabetes is controlled at this time. Hyperlipidemia, continue on statins. PLAN: Again, cardiac cath and can be discharged home on p.o. antibiotics. Currently, we will also stop his vancomycin. MD ANGELA Londono/MODL /[id number]
[2019-12-04] MEDS: COLLAGENASE 5 GM TUBE TP SCH (09:00)
[2019-12-04] MEDS: LOSARTAN POTASSIUM 100 MG TAB PO SCH ×2 (09:40→17:34)
[2019-12-04] MEDS: CEFEPIME 1GM/NS 0.9% 50 ML 50 ML IV SCH (12:10)
[2019-12-04] MEDS: HYDROCODONE/APAP 10MG-325MG TAB PO PRN (12:19)
[2019-12-04] MEDS: ASPIRIN 81 MG ENTERIC COATED PO SCH (17:34)
[2019-12-04] MEDS: RIVAROXABAN 20 MG TABLET PO SCH (17:34)
[2019-12-04] MEDS: ATORVASTATIN 40 MG TAB PO SCH (20:50)
[2019-12-04] MEDS: INSULIN GLARGINE 100 UNITS/ML VIAL SQ SCH (20:50)
[2019-12-04] MEDS ORDERED: SODIUM CHLORIDE 0.9% 250ML 250 ML ONE (22:37)
--- NOTE | 2019-12-04 22:45 | NUR ---
IV on left arm infiltrated. Old IV removed with tip intact. New IV inserted in right FA 20G. Patient tolerated well. Addendum: 12/05/19 at 0735 by Whitney Sandoval RN Please disregard above entry: Wrong patient.
[2019-12-05] VITALS (8 sets, daily range): BP systolic 123–162; BP diastolic 76–86
[2019-12-05] MEDS: MORPHINE SULFATE INJ 4 MG/ML INJ 1ML IV PRN ×3 (01:54→15:01)
--- NOTE | 2019-12-05 02:40 | Progress Note ---
DATE: 12/04/2019 Cardiology Progress Note SUBJECTIVE: The patient denies chest pain or shortness of breath. OBJECTIVE: VITAL SIGNS: Temperature 97.8 degrees, pulse 64, respiratory rate 20, blood pressure 156/79, oxygen saturation 100% on room air. GENERAL: Awake, alert, in no acute distress. LUNGS: Clear to auscultation bilaterally. No wheezes or crackles. HEART: Normal rate, regular rhythm. No murmur. Normal S1, S2. ABDOMEN: Soft, nontender. EXTREMITIES: Trace edema, status post left TMA. Dressing is present on the left. CARDIAC MEDICATIONS: 1. Aspirin 81 mg p.o. daily. 2. Losartan 50 mg p.o. b.i.d. 3. Xarelto 20 mg p.o. daily. LABORATORY DATA: Cholesterol 96, triglycerides 123, LDL 46, HDL 24. IMPRESSION: 1. Left lower extremity ulcer. 2. Peripheral arterial disease. 3. Hypertension. 4. Diabetes mellitus. 5. History of recurrent deep venous thrombosis, status post IVC filter. RECOMMENDATIONS: IV antibiotics per primary service. Continue wound care. Continue statin and aspirin. Hold Xarelto tomorrow as planned for peripheral angiogram on Friday. Continue current cardiac medications. The patient continues to be hypertensive. If this persists, we will plan to add carvedilol. Thank you for this consult. We will continue to follow. Sonia Marquez MD ABS/MODL /[id number] MTDD
[2019-12-05] MEDS: HYDROCODONE/APAP 10MG-325MG TAB PO PRN ×4 (05:18→22:36)
[2019-12-05] MEDS: INSULIN LISPRO 100 UNIT/1 ML 3ML VIAL SQ SCH ×4 (07:30→21:00)
[2019-12-05] MEDS: LOSARTAN POTASSIUM 100 MG TAB PO SCH ×2 (09:07→16:41)
[2019-12-05] MEDS: ASPIRIN 81 MG ENTERIC COATED PO SCH (09:07)
--- NOTE | 2019-12-05 09:41 | Progress Note ---
DATE: SUBJECTIVE: The patient came in with left lower leg diabetic foot ulcer. The patient is feeling better. Erythema, tenderness, and pain have gone down. The patient is having daily wound care. Currently, no chest pain. No shortness of breath. The patient is scheduled for left heart catheterization tomorrow. Vancomycin was stopped yesterday. OBJECTIVE: VITAL SIGNS: Temperature is 97.7, afebrile, pulse of 58, respirations of 18, blood pressure is 155/86, and pulse oximetry of 99%. HEENT: Normocephalic and atraumatic. Pupils are reactive to light and accommodation. CVS: S1 and S2 normal. Regular rate and rhythm. ABDOMEN: Soft, nontender, nondistended. EXTREMITIES: Left lower extremity with wound, which is sealed; erythema down, tenderness down. The patient's pulses are low and left TMA. LABORATORY VALUES: None done today. Serology: Coronavirus not detected. Chemistries; glucoses have been running good and LDL is 46. ASSESSMENT: Mr. Benigno Madrid with: 1. Cellulitis of the left lower extremity diabetic foot ulcer. 2. Peripheral arterial disease. 3. Hypertension. 4. Diabetes. 5. History of recurrent deep venous thrombosis, on Xarelto. PLAN: 1. Continue wound care. 2. Left heart catheterization tomorrow, on Xarelto. 3. Angiogram on Friday and that is tomorrow and continue monitor the patient. 4. Further recommendation per clinical course. MD ANGELA Londono/MODL /[id number]
[2019-12-05] MEDS: CEFEPIME 1GM/NS 0.9% 50 ML 50 ML IV SCH (13:13)
[2019-12-05] MEDS: COLLAGENASE 5 GM TUBE TP SCH (15:01)
[2019-12-05] MEDS: CARVEDILOL 3.125 MG TAB PO SCH (16:41)
--- NOTE | 2019-12-05 18:08 | Progress Note ---
DATE: 12/05/2019 Cardiology Progress Note. SUBJECTIVE: The patient denies chest pain or shortness of breath. OBJECTIVE: VITAL SIGNS: Temperature 98.2 degrees, pulse 74, respiratory rate 19, blood pressure 154/86, and oxygen saturation 100% on room air. GENERAL: Awake, alert, in no acute distress. LUNGS: Clear to auscultation bilaterally. No wheezes or crackles. CARDIOVASCULAR: Normal rate and regular rhythm. No murmur. Normal S1, S2. ABDOMEN: Soft and nontender. EXTREMITIES: Trace edema, status post left TMA. Dressing present on the left. Skin changes of chronic venous stasis. CARDIAC MEDICATIONS: 1. Aspirin 81 mg p.o. daily. 2. Losartan 50 mg p.o. b.i.d. 3. Atorvastatin 20 mg p.o. at bedtime. LABORATORY DATA: None today. IMPRESSION: 1. Left lower extremity ulcer. 2. Peripheral arterial disease. 3. Hypertension. 4. Diabetes mellitus. 5. History of current DVT status post IVC filter. RECOMMENDATIONS: IV antibiotics per primary service. Continue wound care. Continue statin and aspirin. Add carvedilol as blood pressure remains elevated. Continue losartan. Xarelto has been held for peripheral angiogram. n.p.o. after midnight. Further recommendations following test results. Thank you for this consult. We will continue to follow. Sonia Marquez MD ABS/MODL /[id number]
--- NOTE | 2019-12-05 19:29 | NUR ---
Patient received lying in bed. AAO x 4. No complaints of pain. Respirations even and non-labored. Dressing to left leg CDI. Call light within reach.
[2019-12-05] MEDS: INSULIN GLARGINE 100 UNITS/ML VIAL SQ SCH (21:00)
[2019-12-05] MEDS: ATORVASTATIN 40 MG TAB PO SCH (21:41)
[2019-12-06] VITALS (7 sets, daily range): BP systolic 110–165; BP diastolic 78–89
[2019-12-06] MEDS: MORPHINE SULFATE INJ 4 MG/ML INJ 1ML IV PRN ×3 (00:55→17:10)
--- NOTE | 2019-12-06 01:04 | NUR ---
patient medicated with morphine 4mg ivp for c/o left leg pain 12/09 at this time. Addendum: 12/07/19 at 0518 by Miracle Varma RN wrong date
[2019-12-06] MEDS: INSULIN LISPRO 100 UNIT/1 ML 3ML VIAL SQ SCH ×4 (07:30→20:54)
--- NOTE | 2019-12-06 07:30 | NUR ---
PATIENT IS AWAKE, ALERT, AND IN STABLE CONDITION WITH NO S/S OF RESPIRATORY DISTRESS. PATIENT C/O LEFT LEG PAIN 7/10. DRESSING APPLIED TO LEFT LATERAL LEG. PATIENT IS NPO FOR PROCEDURE TODAY. CALL LIGHT IS WITHIN REACH, PATIENT INSTRUCTED TO CALL FOR ASSISTANCE NEEDED.
[2019-12-06] MEDS: LOSARTAN POTASSIUM 100 MG TAB PO SCH ×2 (11:05→16:20)
[2019-12-06] MEDS: CARVEDILOL 3.125 MG TAB PO SCH ×2 (11:05→16:20)
[2019-12-06] MEDS: CEFEPIME 1GM/NS 0.9% 50 ML 50 ML IV SCH (11:22)
--- NOTE | 2019-12-06 13:19 | NUR ---
PATIENT OFF THE UNIT TO PAROLE AGENT PER BED- PATIENT IN STABLE CONDITION WITH NO S/S OF RESPIRATORY DISTRESS.
[2019-12-06] MEDS ORDERED: LIDOCAINE HCL 2% LOCAL 20 ML VIAL ONE (13:21)
[2019-12-06] MEDS ORDERED: HEPARIN SOD/SOD CHLORIDE 2,000 ML ONE (13:21)
[2019-12-06] MEDS ORDERED: IOPAMIDOL 300MG/ML 100 ML INFUS..BTL IV ONE (13:22)
[2019-12-06] MEDS ORDERED: MIDAZOLAM HCL 2 MG/2 ML VIAL ONE ×2 (13:30→14:09)
[2019-12-06] MEDS ORDERED: FENTANYL CITRATE/PF 100MCG/2 ML INJ ONE (13:31)
[2019-12-06] MEDS ORDERED: SODIUM CHLORIDE 0.9% 1000ML 1,000 ML ONE (13:31)
--- NOTE | 2019-12-06 14:11 | Progress Note ---
DATE: Cardiology Progress Note SUBJECTIVE: The patient is feeling better. No events. OBJECTIVE: VITAL SIGNS: Temperature is 97.5, heart rate 66, respirations are 20, blood pressure is 165/86, and oxygen saturation 100% on room air. GENERAL: Well appearing, well built, in no apparent distress. CARDIOVASCULAR: Regular rate and rhythm. LUNGS: Clear to auscultation. ABDOMEN: Soft, nontender, nondistended. EXTREMITIES: Left TMA. CARDIAC MEDICATIONS: Reviewed. LABORATORY DATA: Reviewed. IMPRESSION: 1. Left lower extremity ulcer. 2. Peripheral artery disease. 3. Hypertension. 4. Diabetes mellitus. 5. History of deep venous thrombosis, status post inferior vena cava filter. RECOMMENDATIONS: Continue local wound care and IV antibiotics. Continue to titrate blood pressure medications. Florentino is on hold for peripheral angiogram today. Further recommendations pending procedure. DO SANFORD Osborne/MOUNIKA /[id number]
[2019-12-06] MEDS: HYDROCODONE/APAP 10MG-325MG TAB PO PRN ×2 (15:15→22:00)
[2019-12-06] MEDS: ASPIRIN 81 MG ENTERIC COATED PO SCH (15:15)
[2019-12-06] MEDS: COLLAGENASE 5 GM TUBE TP SCH (17:15)
--- NOTE | 2019-12-06 19:15 | NUR ---
PATIENT IS IN STABLE CONDITION WITH NO S/S OF RESPIRATORY DISTRESS. DRESSING APPLIED TO LATERAL LEFT LEG AND LEFT TMA SITE. CALL LIGHT IS WITHIN REACH, PATIENT INSTRUCTED TO CALL FOR ASSISTANCE NEEDED. REPORT GIVEN TO ONCOMING NURSE.
--- NOTE | 2019-12-06 19:30 | NUR ---
patient received awake, alert, lying quietly in bed. no c/o pain noted. dressing to left foot and left lower leg c,d,i. pm assessment complete. patient instructed to call for assistance when needed.
[2019-12-06] MEDS: ATORVASTATIN 40 MG TAB PO SCH (20:54)
[2019-12-06] MEDS: INSULIN GLARGINE 100 UNITS/ML VIAL SQ SCH (20:55)
--- NOTE | 2019-12-06 21:24 | Progress Note ---
DATE: SUBJECTIVE: A 59-year-old gentleman came in with cellulitis of left lower extremity, doing well. Had a cardiac cath today diagnostic, no stents placed. The patient is doing well. No chest pain. No shortness of breath. OBJECTIVE: VITAL SIGNS: Currently, temperature of 97.6, afebrile, pulse of 64, respirations of 20, blood pressure is 122/89, and pulse 100%. HEENT: Normocephalic and atraumatic. Pupils are reactive. CVS: S1 and S2 normal. Regular rhythm. ABDOMEN: Soft, nontender, and nondistended. EXTREMITIES: Left lower extremity bandaged. Erythema is decreased and tenderness is decreased. MICROBIOLOGY: The patient with Serratia marcescens, sensitive to cefepime and sensitive to Cipro too. The patient can be discharged tomorrow with Cipro, status post catheterization today. Further recommendation per clinical course. We will continue on his home medications and his diabetic medications. MD ANGELA Londono/MOUNIKA /[id number]
--- NOTE | 2019-12-06 22:00 | NUR ---
patient medicated with norco 10/325mg po for c/o left leg pain 12/09 at this time.
[2019-12-07] VITALS: BP 128/81
[2019-12-07] MEDS: MORPHINE SULFATE INJ 4 MG/ML INJ 1ML IV PRN ×2 (01:04→11:05)
--- NOTE | 2019-12-07 01:04 | NUR ---
patient medicated with morphine 4mg ivp for c/o left leg pain 12/09 at this time.
[2019-12-07 04:00] VITALS: BP 139/89
[2019-12-07 05:51] LABS: ANION GAP 13.2 mmol/L (8-16); BLOOD UREA NITROGEN 15 mg/dL (7-26); BUN/CREATININE RATIO 15 (6-25); CALCIUM 9.6 mg/dL (8.4-10.2); CARBON DIOXIDE 27 mmol/L (22-29); CHLORIDE 107 mmol/L (98-107); CREATININE, SERUM 0.99 mg/dL (0.72-1.25); EST GLOMERULAR FILTRATION RATE > 60 ML/MIN (60-); GLUCOSE 92 mg/dL (74-118); POTASSIUM 4.2 mmol/L (3.5-5.1); SODIUM 143 mmol/L (136-145)
--- NOTE | 2019-12-07 06:00 | NUR ---
Dr. Coreas here to see patient this am. patient to discharge home after home health for wound care is arranged. patient verbalizes understanding of this.
[2019-12-07] MEDS: HYDROCODONE/APAP 10MG-325MG TAB PO PRN (06:15)
--- NOTE | 2019-12-07 06:15 | NUR ---
patient medicated with norco 10/325mg po for c/o left leg pain 11/09 at this time.
--- NOTE | 2019-12-07 07:05 | NUR ---
PATIENT IS ALERT AND IN STABLE CONDITION WITH NO S/S OF RESPIRATORY DISTRESS-PATIENT C/O LEFT LEG PAIN 11/09. CALL LIGHT IS WITHIN REACH, PATIENT INSTRUCTED TO CALL FOR ASSISTANCE NEEDED.
[2019-12-07] MEDS: INSULIN LISPRO 100 UNIT/1 ML 3ML VIAL SQ SCH (07:30)
--- NOTE | 2019-12-07 08:04 | Progress Note ---
DATE: SUBJECTIVE: A 59-year-old gentleman with history of cellulitis and the lower extremity with diabetic foot ulcer, status post angiography, yesterday, the patient had a good peripherals and good collaterals. The patient is currently feeling better. No complaints. No chest pain. No shortness of breath. OBJECTIVE: VITAL SIGNS: Stable. Temperature is 97.5, pulse of 69, respirations of 22, blood pressure is 128/81, pulse oximetry 98%. HEENT: Normocephalic and atraumatic. Pupils are reactive. CVS: S1 and S2 normal. Regular rate and rhythm. ABDOMEN: Soft and nontender. EXTREMITIES: Left lower extremity with ulceration and also with erythema and tenderness, which is decreased. MICROBIOLOGY: Showed Serratia. IMAGING: MRI was negative for osteomyelitis. ASSESSMENT: Mr. Benigno Marshall with Serratia marcescens, left lower leg cellulitis and ulceration. PLAN: Okay to discharge on Cipro 500 mg twice a day for 14 days, will be seen in the clinic in 10 days. The patient has been asked to elevate the legs and also the patient will be discharged with wound care at this facility. Further recommendation per clinical course. We will continue monitor the patient as an outpatient and he is to continue his diabetic medication. MD ANGELA Londono/MOUNIKA /[id number]
[2019-12-07] MEDS: ASPIRIN 81 MG ENTERIC COATED PO SCH (08:05)
[2019-12-07] MEDS: CARVEDILOL 3.125 MG TAB PO SCH (08:05)
[2019-12-07] MEDS: LOSARTAN POTASSIUM 100 MG TAB PO SCH (08:05)
[2019-12-07 08:12] VITALS: BP 130/80
[2019-12-07 08:35] VITALS: BP 130/80
--- NOTE | 2019-12-07 09:38 | NUR ---
Wound clinic referral faxed to [phone]. [address] [place] [address] Clinic information was printed and given to pt.
--- NOTE | 2019-12-07 10:50 | NUR ---
ASSESSMENT: Spiritual concern Pt thankful for nurse's excellent care. Pt states his nurse is "head and shoulders above the rest." Pt expressed concern about pandemic. Pt states he will d/c today. Intervention: Provided unhurried pastoral presence and empathic listening. Outcome: No need to follow. IDANIA CALIX Supervisory Investigative Specialist Spiritual Care Department O: [phone]
--- NOTE | 2019-12-07 10:56 | NUR ---
Called wound clinic and verified that they received order. They will run benefits and call pt.
[2019-12-07] MEDS: COLLAGENASE 5 GM TUBE TP SCH (11:12)
[2019-12-07 11:56] VITALS: BP 143/77
--- NOTE | 2019-12-07 12:06 | NUR ---
PATIENT DISCHARGE HOME- PATIENT OFF THE UNIT AT 1151 PER WHEELCHAIR ACCOMPANIED BY PCT TO THE FRONT LOBBY. PATIENT IS IN STABLE CONDITION WITH NO S/S OF RESPIRATORY DISTRESS. NO PAIN VOICED. IV REMOVED WITH TIP INTACT. DRESSING CHANGE COMPLETED TO PATIENT'S LEFT LATERAL LEG AND LEFT TMA WOUND SITE. DISCHARGE TEACHING, INSTRUCTIONS, AND MEDICATION HAVE BEEN GIVEN TO THE PATIENT. ALL PERSONAL ITEMS TAKEN WITH THE PATIENT.
== END 2019-12-07 11:51 | disposition home or self-care (01) | DRG 638 ==
LOC: ER 06:46 → ERHOLD 07:13 → MED/SURG3 10:54 → MED/SURG2 12-01 17:26
PROVIDERS: ADMIT Family Medicine; ATTEND Family Medicine
PROC: B41D1ZZ Fluoroscopy of Aorta and Bilateral Lower Extremity Arteries using Low Osmolar Contrast (ICD-10-PCS; principal; 2019-12-06)
DX: E11.622 Type 2 diabetes mellitus with other skin ulcer (principal); L97.929 Non-pressure chronic ulcer of unspecified part of left lower leg with unspecified severity; L03.116 Cellulitis of left lower limb; Z79.4 Long term (current) use of insulin; E11.51 Type 2 diabetes mellitus with diabetic peripheral angiopathy without gangrene; I10 Essential (primary) hypertension; Z86.718 Personal history of other venous thrombosis and embolism; Z79.01 Long term (current) use of anticoagulants; E11.628 Type 2 diabetes mellitus with other skin complications; B96.89 Other specified bacterial agents as the cause of diseases classified elsewhere; E11.65 Type 2 diabetes mellitus with hyperglycemia; Z11.59 Encounter for screening for other viral diseases
CPT/HCPCS: 36415; 75630; 80048; 80053; 80061; 80202; 82550; 82553; 82948; 83605; 84484; 85025; 87040; 87071; 87186; 87205; 87635; 93926; 93971; 99152; 99153; 99251; 99283; C1760; C1769; J0692; J1815; J2001; J2250; J2270; J3010; J3370; J7030; J7050; Q9967

== ENCOUNTER → 2019-12-08 | Outpatient (CLI) | payer BC, OTHER | LOC: WCC 10:53 | PROVIDERS: ATTEND Family Medicine | DX: E11.51 Type 2 diabetes mellitus with diabetic peripheral angiopathy without gangrene (principal); E11.65 Type 2 diabetes mellitus with hyperglycemia; I87.332 Chronic venous hypertension (idiopathic) with ulcer and inflammation of left lower extremity; L97.821 Non-pressure chronic ulcer of other part of left lower leg limited to breakdown of skin; L97.321 Non-pressure chronic ulcer of left ankle limited to breakdown of skin; R60.0 Localized edema; I87.2 Venous insufficiency (chronic) (peripheral); I10 Essential (primary) hypertension; K46.9 Unspecified abdominal hernia without obstruction or gangrene; B96.89 Other specified bacterial agents as the cause of diseases classified elsewhere; E78.00 Pure hypercholesterolemia, unspecified; W20.8XXA Other cause of strike by thrown, projected or falling object, initial encounter ==

== ENCOUNTER → 2019-12-15 | Outpatient (CLI) | payer BC, OTHER | LOC: WCC 10:23 | PROVIDERS: ATTEND Family Medicine | DX: E11.51 Type 2 diabetes mellitus with diabetic peripheral angiopathy without gangrene (principal); E11.65 Type 2 diabetes mellitus with hyperglycemia; I87.332 Chronic venous hypertension (idiopathic) with ulcer and inflammation of left lower extremity; L97.821 Non-pressure chronic ulcer of other part of left lower leg limited to breakdown of skin; L97.321 Non-pressure chronic ulcer of left ankle limited to breakdown of skin; R60.0 Localized edema; I87.2 Venous insufficiency (chronic) (peripheral); I10 Essential (primary) hypertension; B96.89 Other specified bacterial agents as the cause of diseases classified elsewhere; E78.00 Pure hypercholesterolemia, unspecified; K46.9 Unspecified abdominal hernia without obstruction or gangrene; W20.8XXA Other cause of strike by thrown, projected or falling object, initial encounter ==

== ENCOUNTER → 2019-12-22 | Outpatient (CLI) | payer BC, OTHER | LOC: WCC 11:22 | PROVIDERS: ATTEND Family Medicine | DX: E11.51 Type 2 diabetes mellitus with diabetic peripheral angiopathy without gangrene (principal); E11.65 Type 2 diabetes mellitus with hyperglycemia; I87.332 Chronic venous hypertension (idiopathic) with ulcer and inflammation of left lower extremity; L97.821 Non-pressure chronic ulcer of other part of left lower leg limited to breakdown of skin; L97.321 Non-pressure chronic ulcer of left ankle limited to breakdown of skin; I87.2 Venous insufficiency (chronic) (peripheral); R60.0 Localized edema; I10 Essential (primary) hypertension; B96.89 Other specified bacterial agents as the cause of diseases classified elsewhere; E78.00 Pure hypercholesterolemia, unspecified; K46.9 Unspecified abdominal hernia without obstruction or gangrene; W20.8XXA Other cause of strike by thrown, projected or falling object, initial encounter ==

== ENCOUNTER → 2019-12-29 | Outpatient (CLI) | payer BC, OTHER | LOC: WCC 14:16 | PROVIDERS: ATTEND Family Medicine | DX: E11.51 Type 2 diabetes mellitus with diabetic peripheral angiopathy without gangrene (principal); E11.65 Type 2 diabetes mellitus with hyperglycemia; I87.332 Chronic venous hypertension (idiopathic) with ulcer and inflammation of left lower extremity; L97.821 Non-pressure chronic ulcer of other part of left lower leg limited to breakdown of skin; L97.321 Non-pressure chronic ulcer of left ankle limited to breakdown of skin; R60.0 Localized edema; I87.2 Venous insufficiency (chronic) (peripheral); K46.9 Unspecified abdominal hernia without obstruction or gangrene; I10 Essential (primary) hypertension; B96.89 Other specified bacterial agents as the cause of diseases classified elsewhere; E78.00 Pure hypercholesterolemia, unspecified; W20.8XXA Other cause of strike by thrown, projected or falling object, initial encounter | CPT/HCPCS: 83036; 87071; 87075; 87205 ==

== ENCOUNTER → 2020-01-05 | Outpatient (CLI) | payer BC, OTHER | LOC: WCC 13:57 | PROVIDERS: ATTEND Family Medicine | DX: E11.51 Type 2 diabetes mellitus with diabetic peripheral angiopathy without gangrene (principal); E11.65 Type 2 diabetes mellitus with hyperglycemia; I87.332 Chronic venous hypertension (idiopathic) with ulcer and inflammation of left lower extremity; L97.821 Non-pressure chronic ulcer of other part of left lower leg limited to breakdown of skin; L97.321 Non-pressure chronic ulcer of left ankle limited to breakdown of skin; I87.2 Venous insufficiency (chronic) (peripheral); R60.0 Localized edema; B96.89 Other specified bacterial agents as the cause of diseases classified elsewhere; I10 Essential (primary) hypertension; K46.9 Unspecified abdominal hernia without obstruction or gangrene; E78.00 Pure hypercholesterolemia, unspecified; W20.8XXA Other cause of strike by thrown, projected or falling object, initial encounter | CPT/HCPCS: 36415; 82948 ==

== ENCOUNTER → 2020-01-12 | Outpatient (CLI) | payer BC, OTHER | LOC: WCC 12:45 | PROVIDERS: ATTEND Family Medicine | DX: E11.51 Type 2 diabetes mellitus with diabetic peripheral angiopathy without gangrene (principal); E11.65 Type 2 diabetes mellitus with hyperglycemia; I87.332 Chronic venous hypertension (idiopathic) with ulcer and inflammation of left lower extremity; L97.821 Non-pressure chronic ulcer of other part of left lower leg limited to breakdown of skin; L97.321 Non-pressure chronic ulcer of left ankle limited to breakdown of skin; R60.0 Localized edema; I87.2 Venous insufficiency (chronic) (peripheral); I10 Essential (primary) hypertension; E78.00 Pure hypercholesterolemia, unspecified; K46.9 Unspecified abdominal hernia without obstruction or gangrene; W20.8XXA Other cause of strike by thrown, projected or falling object, initial encounter ==

== ENCOUNTER → 2020-01-19 | Outpatient (CLI) | payer BC, OTHER | LOC: WCC 11:57 | PROVIDERS: ATTEND Family Medicine | DX: E11.51 Type 2 diabetes mellitus with diabetic peripheral angiopathy without gangrene (principal); E11.65 Type 2 diabetes mellitus with hyperglycemia; I87.332 Chronic venous hypertension (idiopathic) with ulcer and inflammation of left lower extremity; L97.821 Non-pressure chronic ulcer of other part of left lower leg limited to breakdown of skin; L97.321 Non-pressure chronic ulcer of left ankle limited to breakdown of skin; I87.2 Venous insufficiency (chronic) (peripheral); R60.0 Localized edema; I10 Essential (primary) hypertension; E78.00 Pure hypercholesterolemia, unspecified; K46.9 Unspecified abdominal hernia without obstruction or gangrene; W20.8XXA Other cause of strike by thrown, projected or falling object, initial encounter ==

== ENCOUNTER → 2020-01-26 | Outpatient (CLI) | payer BC, OTHER | LOC: WCC 10:39 | PROVIDERS: ATTEND Family Medicine | DX: E11.51 Type 2 diabetes mellitus with diabetic peripheral angiopathy without gangrene (principal); E11.65 Type 2 diabetes mellitus with hyperglycemia; I87.332 Chronic venous hypertension (idiopathic) with ulcer and inflammation of left lower extremity; L97.821 Non-pressure chronic ulcer of other part of left lower leg limited to breakdown of skin; L97.321 Non-pressure chronic ulcer of left ankle limited to breakdown of skin; I87.2 Venous insufficiency (chronic) (peripheral); R60.0 Localized edema; S80.812A Abrasion, left lower leg, initial encounter; I10 Essential (primary) hypertension; E78.00 Pure hypercholesterolemia, unspecified; K46.9 Unspecified abdominal hernia without obstruction or gangrene; W20.8XXA Other cause of strike by thrown, projected or falling object, initial encounter ==

== ENCOUNTER → 2020-02-02 | Outpatient (CLI) | payer BC, OTHER | LOC: WCC 10:37 | PROVIDERS: ATTEND Family Medicine | DX: E11.51 Type 2 diabetes mellitus with diabetic peripheral angiopathy without gangrene (principal); E11.65 Type 2 diabetes mellitus with hyperglycemia; I87.332 Chronic venous hypertension (idiopathic) with ulcer and inflammation of left lower extremity; L97.821 Non-pressure chronic ulcer of other part of left lower leg limited to breakdown of skin; L97.321 Non-pressure chronic ulcer of left ankle limited to breakdown of skin; I87.2 Venous insufficiency (chronic) (peripheral); R60.0 Localized edema; S80.812A Abrasion, left lower leg, initial encounter; I10 Essential (primary) hypertension; E78.00 Pure hypercholesterolemia, unspecified; K46.9 Unspecified abdominal hernia without obstruction or gangrene; W20.8XXA Other cause of strike by thrown, projected or falling object, initial encounter ==

== ENCOUNTER → 2020-02-16 | Outpatient (CLI) | payer BC, OTHER | LOC: WCC 11:26 | PROVIDERS: ATTEND Family Medicine | DX: E11.51 Type 2 diabetes mellitus with diabetic peripheral angiopathy without gangrene (principal); E11.65 Type 2 diabetes mellitus with hyperglycemia; I87.332 Chronic venous hypertension (idiopathic) with ulcer and inflammation of left lower extremity; L97.821 Non-pressure chronic ulcer of other part of left lower leg limited to breakdown of skin; L97.321 Non-pressure chronic ulcer of left ankle limited to breakdown of skin; R60.0 Localized edema; S80.812A Abrasion, left lower leg, initial encounter; I87.2 Venous insufficiency (chronic) (peripheral); I10 Essential (primary) hypertension; K46.9 Unspecified abdominal hernia without obstruction or gangrene; E78.00 Pure hypercholesterolemia, unspecified; W20.8XXA Other cause of strike by thrown, projected or falling object, initial encounter ==

== ENCOUNTER → 2020-03-08 | Outpatient (CLI) | payer BC, OTHER | LOC: WCC 14:45 | PROVIDERS: ATTEND Family Medicine | DX: E11.51 Type 2 diabetes mellitus with diabetic peripheral angiopathy without gangrene (principal); E11.65 Type 2 diabetes mellitus with hyperglycemia; I87.332 Chronic venous hypertension (idiopathic) with ulcer and inflammation of left lower extremity; L97.321 Non-pressure chronic ulcer of left ankle limited to breakdown of skin; L97.821 Non-pressure chronic ulcer of other part of left lower leg limited to breakdown of skin; I87.2 Venous insufficiency (chronic) (peripheral); R60.0 Localized edema; S80.812A Abrasion, left lower leg, initial encounter; I10 Essential (primary) hypertension; E78.00 Pure hypercholesterolemia, unspecified; K46.9 Unspecified abdominal hernia without obstruction or gangrene; W20.8XXA Other cause of strike by thrown, projected or falling object, initial encounter ==